=== PATIENT | male | born 1945 | race Caucasian/White ===

== ENCOUNTER 2020-10-28 07:30 | Inpatient (IN) | payer MEDICARE, BC ==
[2020-10-28 14:58] LABS: #Basophils 0.1 10x3/uL (0.0-0.2); #Eosinphils 0.2 10x3/uL (0.0-0.5); #Monocytes 0.7 10x3/uL (0.0-1.1); #Neutrophils 6.6 10x3/uL (1.5-8.4); %Eosinophils 2.4 % (0.0-6.0); %Lymphocytes 12.4 % (18.0-47.0); %Monocytes 8.2 % (0.0-10.0); %Neutrophils 75.3 % (40.0-75.0); Hemoglobin 9.6 g/dL (13.5-17.5); Mean Corpuscular HGB CONC 30.5 g/dL (32.0-36.0); Mean Corpuscular Hemoglobin 30.5 pg (27.0-33.0); Mean Platelet Volume 8.9 fl (7.4-10.4); Platelet Count 786 10x3/uL (150-450); RBC Distribution Width 13.2 % (11.5-14.5); Red Blood Cell (RBC) Count 3.15 10x6/uL (4.32-5.72); White Blood Cell (WBC) Count 8.8 10x3/uL (3.5-10.5)
[2020-10-28 15:08] VITALS: BMI 38.0
[2020-10-28 15:20] LABS: INR-International Normal Ratio 1.1; Prothrombin Time 11.7 sec (9.5-12.1)
[2020-10-28 15:31] LABS: Bilirubin Neg (Negative); Blood, Urine Negative (Negative); Clarity Clear (Clear); Glucose, Urine (Dipstick) Normal (Negative); Ketone, Urine Negative (Negative); Leukocyte Negative (Negative); Nitrite Negative (Negative); Protein, Urine (Dipstick) Negative (Neg-Trace); Specific Gravity, Urine 1.005 (1.002-1.036)
[2020-10-28 15:37] LABS: Anion Gap 16 mmol/L (10-20); BUN (Urea Nitrogen) 16 mg/dL (8.4-25.7); Calc. Creatinine Clearance 0 mL/min (70-130); Carbon Dioxide 27 mmol/L (23-31); Chloride 103 mmol/L (98-107); Glucose 113 mg/dL (83-110); Potassium 4.8 mmol/L (3.5-5.1); Sodium 141 mmol/L (136-145)
[2020-10-28 16:32] LABS: Bacteria/HPF Rare-Few HPF (None Seen); RBC/HPF 0-3 HPF (0-3); Squamous Epithelial 0-3 HPF (0-3); WBC/HPF 0-3 HPF (0-3)
[2020-10-28 17:04] LABS: Giant Platelets SLIGHT; Hypochromia SLIGHT = 6-15 cells (100X) (0-5/hpf); Large Platelets SLIGHT; Platelet Morphology Comment Appears Increased; Stomatocytes SLIGHT = 2-5 cells (100X) (0-1/hpf)
[2020-10-30] MEDS ORDERED: Bupivacaine PF 0.5% 30 ML VIAL ONE (07:11)
[2020-10-30] MEDS ORDERED: Neomycin-Polymyxin 1 ML AMP ONE ×2 (07:11)
[2020-10-30] MEDS ORDERED: Fentanyl 100 MCG/2 ML VIAL ONE ×4 (07:25→11:35)
[2020-10-30] MEDS ORDERED: Phenylephrine 10 MG/ML VIAL ONE (07:26)
[2020-10-30 07:57] LABS: INR-International Normal Ratio 1.1; Prothrombin Time 14.5 sec (12.0-14.7)
[2020-10-30] MEDS ORDERED: Sodium Chloride 0.9% 100 ML ONE (07:57)
[2020-10-30] MEDS ORDERED: Tranexamic Acid 1,000 MG/10 ML VIAL ONE (07:57)
[2020-10-30] MEDS ORDERED: Vancomycin 1.5 GRAM/300 ML BAG ONE (08:02)
[2020-10-30] MEDS ORDERED: Vancomycin HCl 1.5 GM in Sodium Chloride 0.9% 250 ML 300 ML IVPB SCH (09:00)
[2020-10-30] MEDS ORDERED: Tobramycin Sulfate 1.2 GM VIAL ONE (09:09)
[2020-10-30] MEDS ORDERED: Sodium Chloride 0.9% 30 ML ONE ×2 (09:52)
[2020-10-30] MEDS ORDERED: Milk Of Magnesia 30 ML UDCUP PO PRN (11:40)
[2020-10-30] MEDS ORDERED: Bisacodyl 10 MG SUPP PR PRN (11:40)
[2020-10-30] MEDS ORDERED: Cepastat Lozenges 1 LOZ PO PRN (11:40)
[2020-10-30] MEDS ORDERED: Ondansetron PF 4 MG/2 ML Vial IM PRN (11:40)
[2020-10-30] MEDS ORDERED: Acetaminophen 500 MG TAB PO PRN (11:40)
[2020-10-30] MEDS ORDERED: traMADol HCl 50 MG TAB PO PRN (11:40)
[2020-10-30] MEDS ORDERED: Zolpidem Tartrate 5 MG TAB PO PRN (11:40)
[2020-10-30] MEDS ORDERED: Fentanyl 100 MCG/2 ML VIAL SLOW IVP PRN (11:40)
[2020-10-30] MEDS ORDERED: HYDROcodone/Acetaminophen 10/325 mg Tablet PO PRN (11:40)
[2020-10-30] MEDS ORDERED: Fleet Enema 133 ML BOT PR PRN (11:40)
[2020-10-30] MEDS ORDERED: Midazolam HCl 2 mg/2 ml Vial ONE (11:54)
[2020-10-30] MEDS ORDERED: HYDROmorphone 2 MG/ML VIAL ONE (11:54)
[2020-10-30] MEDS ORDERED: Non-Formulary Item 1 EACH (Folic Acid [Folic Acid] 0.8 MG Tablet) PO SCH (12:00)
[2020-10-30] MEDS ORDERED: Folic Acid 1 MG TAB PO SCH (12:15)
--- NOTE | 2020-10-30 13:04 | OP ---
DATE OF PROCEDURE: 10/30/2020 ASSISTANTS: 1. Oscar Stover MD. 2. JUNI Chen. Dr. Stover was present throughout the procedure to include the approach, debridement of the knee, removal of the old total knee replacement and placement of the new total knee replacement. SURGERY PERFORMED: Right total knee revision done for infection. IMPLANTS: Mary Triathlon total knee system. The femur was size 7 cruciate retaining femur, and we used a size 16 all-poly size #6 right tibia. We did not replace an implant for the patella. Blood loss was minimal. We did send intraoperative cultures both in the way of liquid as well as tissue. DISPOSITION: He did go to recovery room in stable condition. INDICATIONS: This 75-year-old male came to the office on Sunday. Knee was aspirated and fluid was felt to be indicative of an infection. The patient had his knee replaced approximately 8 years ago and up until the last couple of weeks had done well without any issues whatsoever, and at this time is presenting to have the knee removed, debrided, and placement of new implants. Also of note, the patient did test COVID positive upon his preop lab work. DESCRIPTION OF PROCEDURE: After all appropriate consent forms were explained and signed by Mr. Machado, he was taken to the operative room and at this time was given general anesthetic. Once the level of anesthesia was appropriate, a tourniquet was placed on his right thigh, and the leg was prepped and draped in standard surgical fashion. The limb was then elevated. It was not exsanguinated, and the tourniquet was taken up to 300 mmHg. Previous incision was used to make an incision into the knee using a 10 blade. Bovie was used to coagulate any brisk venous bleeding. New blade was used to make a medial parapatellar arthrotomy. Once we entered into the joint, a copious amount of cloudy yellow turbid fluid was sucked out of the joint. We did send a culture of this. We then were able to expose the inside of the knee, and at this time we removed the tissue of the suprapatellar pouch and doing a synovectomy as well as cleaning out both the medial and lateral gutters. The tissue from this was sent to the laboratory for culture and sensitivity as well. At this time, we did remove excess scar tissue from posterior to the patellar tendon in order to be able to try to mobilize the patella and the patellar tendon. At this time, we turned our attention to removing the plastic by using a quarter-inch osteotome and popping the plastic out. The metal wire was removed as well. We then flexed our knee up to expose our femur. We then used a combination of osteotomes as well as a saw to get directly underneath the metal to preserve femoral bone. Once this was loose enough, the femur was removed. Any excess cement was also removed at this time. We lost very little femoral bone stock, and again there was not a whole lot of lysis of the bone as this infection was pretty recent. We then turned our attention to the tibia. This was much more difficult to get out, but again we did use a combination of saw and osteotomes to loosen the prosthesis from the underlying tibia and refined, got the metal base plate out preserving as much bone as possible. Again, all excess bone cement was removed at this time. We then cleaned out the notch of any tissue trying to leave some PCL as best we could as well as removing tissue from behind the femoral condyles. At this time, we then thoroughly irrigated with normal saline. We also irrigated with Betadine impregnated saline. Once we had run through 6 L with the pulse lavage, the knee was dried up, and we then mixed 2 batches of cement; we did this first by doing the tibia and secondly by following with the femur. Prior to making the cement, we did take our saw and removed our patella, and we also removed the little plastic plugs from inside of the patella itself. At this time, we were ready for reimplantation. We did trial and we trialed a size 7 cruciate retaining right femur. We trialed a size 6 tibial base plate with a 16 mm poly. This gave us good flexion and stability. We did have some looseness in full extension, and we decided we would build this up a little bit with the cement. We did then prepare our tibia by punching using the riskmethods reamer and then using the all-poly tibial punch to enlarge in our punch thin. Again, we thoroughly irrigated some more with some saline. We then dried the knee and went about mixing our cement. As mentioned previously, we did this in two batches. The tibia was done first. To tobramycin-impregnated cement, we added 3 g of vancomycin powder as well as 2.4 of tobramycin. This was mixed and in its doughy state, we then placed the cement onto the tibia. We then impacted our all-poly tibia into place. We did remove any gross excess cement from around the periphery of the tibia, but we did leave some access just around the prosthesis. We held this in place until the cement had hardened enough that we could go to work on the femur. Again, we mixed another batch of cement in the same fashion, placed it on our femur and impacted our femoral component. The knee was kept in approximately 30 degrees of flexion for remainder of the procedure. Again, we did not go out in full extension to put pressure on the implant. At this time, we thoroughly irrigated and dried some more. We than used #2 Vicryl followed by a #2 Stratafix. We then used 0 Stratafix, and we then used multiple 0 prolene sutures to close the skin. At this time, tourniquet was let down with a total lapse time of just over 2 hours. We then placed a copious bulky sterile dressing on the right leg. The patient was then awakened and was taken to the recovery room in stable condition. All counts were correct at the end of the case, and he did receive some intraoperative IV antibiotics to include Ancef and IV vancomycin. Job ID: [id number]
[2020-10-30] MEDS ORDERED: Labetalol HCl 100 MG/20 ML VIAL ONE ×2 (14:03)
[2020-10-30] MEDS ORDERED: Glycopyrrolate 0.2 MG/ML 5 ML SYRINGE ONE (14:03)
[2020-10-30] MEDS ORDERED: Rocuronium Bromide 10 MG/ML (10ML VIAL) ONE (14:03)
[2020-10-30] MEDS ORDERED: Dexamethasone 20 MG/5 ML VIAL ONE (14:03)
[2020-10-30] MEDS ORDERED: Ondansetron PF 4 MG/2 ML Vial ONE (14:03)
[2020-10-30] MEDS ORDERED: PROPOFOL 200 MG/20 ML VIAL ONE (14:03)
[2020-10-30] MEDS ORDERED: Lidocaine 1% PF 5 ML VIAL ONE (14:03)
--- NOTE | 2020-10-30 14:18 | RAD ---
EXAM: RIGHT KNEE TWO VIEWS: 10/30/20 HISTORY: Status post total knee replacement. FINDINGS/IMPRESSION: Recent total knee arthroplasty changes. No dislocation or periprosthetic fracture. POS: RRE
--- NOTE | 2020-10-30 14:30 | PDOC.CONS ---
- Consultation Encounter Date: 10/30/20 Encounter Time: 14:29 Patient here for I&D and Revision Right Total Knee replacement completed by Dr. Mujica on the morning of 10/30/20. Patient sitting up in bed, alert and oriented, answers questions appropriately. at bedside. Patient has good history recall. Denies pain at time of assessment. I&D and Revision Right Total Knee replacement Atrial Fibrillation - patient is managed by Dr. Grande at [facility]. -Continue Eliquis home med -Continue Metoprolol home med Hypertension -Continue Lisinopril/HCTZ home med every morning -Continue Lisinopril home med every evening Hyperlipidemia -Continue Rosuvastatin home med -Continue Fish Oil home med -Continue Red yeast rice home med Surgical history: -Right TKR 11/2012 -Left TKR 06/2013 -Right foot bunion -Left leg staph infection -Pacemaker placement Social History: Non-smoker Occasional beer drinker No drug use , lives in [place] at home with his . Patient's PCP is Dr. Michael Lagunas Physical Exam - Physical Exam General Appearance: no apparent distress Eyes, Ears, Nose, Throat Exam: PERRL/EOMI, normal ENT inspection, TMs normal Respiratory: lungs clear, normal breath sounds, no respiratory distress Cardiovascular/Chest: normal peripheral pulses, regular rate, rhythm Gastrointestinal/Abdominal: normal bowel sounds, non tender Extremities Exam: other (right knee bandaged s/p surgery) Neurological: alert, normal mood/affect Appearance: appropriate appearance, no memory impairment Behavior/Eye Contact/Speech: cooperative, good eye contact, normal speech Thoughts/Hallucinations: normal thought pattern Skin Exam: normal color, warm/dry Plan Home Medications: Medication Instructions Recorded Confirmed Type Acetaminophen [Acetaminophen Extra 1,500 mg PO BID 06/26/13 10/28/20 History Strength] Lisinopril/Hydrochlorothiazide 1 tab PO QAM 06/26/13 10/28/20 History [Prinizide] Metoprolol Succinate [Toprol XL] 50 mg PO QPM 06/26/13 10/28/20 History Potassium Chloride [Klor-Con 10] 10 meq PO DAILY 06/26/13 10/28/20 History Apixaban [Eliquis] 5 mg PO BID 10/28/20 10/28/20 History Diclofenac Sodium [Diclofenac 2 gm TOP QID PRN 10/28/20 10/28/20 History Sodium 1% Gel] Ergocalciferol (Vitamin D2) 50,000 unit PO Q7DAYS 10/28/20 10/28/20 History [Vitamin D2] Fish Oil/DHA/EPA [Fish Oil 1,200 1 cap PO ASDIR 10/28/20 10/28/20 History mg Fish Oil] Folic Acid 0.8 mg PO ASDIR 10/28/20 10/28/20 History HYDROcodone Bit/APAP 10/325 [Monson 1 tab PO Q6HR PRN 10/28/20 10/28/20 History 10/325] Lisinopril 20 mg PO QPM 10/28/20 10/28/20 History Red Yeast Rice 1,200 mg PO QAM 10/28/20 10/28/20 History Rosuvastatin [Crestor] 5 mg PO QPM 10/28/20 10/28/20 History Allergies: No Known Allergies Allergy (Verified 10/28/20 14:59) Referrals: PROVIDER,NO PCP [Primary Care Provider] - A/P - Problem (1) Status post revision of total replacement of right knee Current Visit: Yes Code(s): Z96.651 - PRESENCE OF RIGHT ARTIFICIAL KNEE JOINT Status: Acute (2) Status post incision and drainage Current Visit: Yes Code(s): Z98.890 - OTHER SPECIFIED POSTPROCEDURAL STATES Status: Acute (3) Atrial fibrillation Current Visit: Yes Code(s): I48.91 - UNSPECIFIED ATRIAL FIBRILLATION Status: Acute (4) Hypertension Current Visit: Yes Code(s): I10 - ESSENTIAL (PRIMARY) HYPERTENSION Status: Acute (5) Hyperlipidemia Current Visit: Yes Code(s): E78.5 - HYPERLIPIDEMIA, UNSPECIFIED Status: Acute - Plan Plan: I&D and Revision Right Total Knee replacement -Dr. Correa Consulted -PT evaluation ordered by Dr. Mujica -Mechanical SCDs ordered by Dr. Mujica Atrial Fibrillation - patient is managed by Dr. Grande at [facility]. -Continue Eliquis home med -Continue Metoprolol home med Hypertension -Continue Lisinopril/HCTZ home med every morning -Continue Lisinopril home med every evening Hyperlipidemia -Continue Rosuvastatin home med -Continue Fish Oil home med -Continue Red yeast rice home med Case discussed with Dr. Millan.
[2020-10-30] MEDS: Sodium Chloride 0.9% 1,000 ML IV SCH (14:54)
[2020-10-30] MEDS: Ketorolac Tromethamine 30 MG/ML VIAL IVP SCH ×2 (14:54→19:06)
[2020-10-30] MEDS ORDERED: Heparin 1,000 UNITS/ML VIAL ONE (16:37)
[2020-10-30] MEDS: CEFAZOLIN 2 GM in Premix Bag 1 BAG IVPB SCH ×2 (17:06→23:48)
--- NOTE | 2020-10-30 20:02 | RAD ---
EXAM: CHEST ONE VIEW: 10/30/20 HISTORY: COVID pneumonia. FINDINGS: Poor inspiration. Minimal cardiomegaly. Left transvenous pacemaker. Minimal patchy increased bronchov ascular markings, nonspecific. No evidence for overt pneumonia. No pleural effusion. IMPRESSION: No evidence for overt pneumonia. Minimal cardiomegaly. Poor inspiration. Consider short term follow-u p. POS: RRE
[2020-10-30] MEDS: Ferrous Gluconate 324 MG TAB PO SCH (20:44)
[2020-10-30] MEDS: Senokot S 8.6-50 MG TAB PO SCH (20:44)
[2020-10-30] MEDS: Rosuvastatin 5 MG TAB PO SCH (20:44)
[2020-10-30] MEDS: Vancomycin 1.5 GRAM/300 ML BAG 1.5 GM in Premix Bag 1 BAG IVPB SCH (20:44)
[2020-10-30] MEDS: Aspirin 81 mg Enteric Coated Tablet PO SCH (20:44)
[2020-10-30] MEDS: Lisinopril 20 MG TAB PO SCH ×2 (20:44)
[2020-10-30 22:07] LABS: SARS-CoV-2 PCR by NAA Not Detected (NotDetected)
[2020-10-31] MEDS: Ketorolac Tromethamine 30 MG/ML VIAL IVP SCH (01:50)
[2020-10-31] MEDS: Sodium Chloride 0.9% 1,000 ML IV SCH ×3 (01:52→18:48)
[2020-10-31 05:16] LABS: Hemoglobin 8.5 g/dL (14.0-18.0); Mean Corpuscular HGB CONC 31.9 g/dL (32.0-36.0); Mean Corpuscular Hemoglobin 30.9 pg (27.0-31.0); Mean Corpuscular Volume 96.9 fL (78.0-98.0); Mean Platelet Volume 6.4 fL (7.4-10.4); Platelet Count 753 thou/uL (130-400); RBC Distribution Width 12.6 % (11.5-14.5); Red Blood Cell (RBC) Count 2.74 mill/uL (4.70-6.10); White Blood Cell (WBC) Count 10.5 thou/uL (4.8-10.8)
[2020-10-31] MEDS: HYDROcodone/Acetaminophen 10/325 mg Tablet PO PRN ×2 (05:36→22:57)
--- NOTE | 2020-10-31 05:52 | CON ---
DATE OF CONSULTATION: 10/30/2020 REASON FOR CONSULTATION: Right TKR infection with revision. HISTORY OF PRESENT ILLNESS: A 75-year-old with history of sick sinus syndrome with pacemaker, hypertension, dyslipidemia, as well as obesity, who had bilateral TKRs in 2012. Those two procedures went well and the patient has not had any issues until now when he developed pain in the right knee and was diagnosed with infection of the right knee. He had the implant removed and the usual articulated spacer was placed with poly tibial implant and a femur component. He is doing well now. No headaches, visual symptoms, sore throat, odynophagia, or dysphagia. No cough or sputum production. No chest pain. No abdominal pain or diarrhea. No genitourinary symptoms. No joint symptoms outside the area of involvement. He did test positive for SARS-CoV-2, but he is asymptomatic at least for the time being. PAST MEDICAL HISTORY: Atrial fibrillation, I think he had an ablation and has a pacemaker in place. Hypertension and hyperlipidemia. PAST SURGICAL HISTORY: Bilateral TKR, had a staph infection left leg in the past, and pacemaker placement. SOCIAL HISTORY: Retired. Lives in [place]. Quit smoking in the 70s. He drinks beer occasionally. . CURRENT MEDICATIONS: Include; 1. Cefazolin. 2. Fentanyl. 3. Folic acid. 4. Hydrocodone. 5. Lisinopril. 6. Magnesium. 7. Metoprolol. 8. Ondansetron. 9. Potassium. 10. Crestor. 11. Vancomycin. 12. Zolpidem. PHYSICAL EXAMINATION: VITAL SIGNS: Temperature is normal. Other vital signs are essentially normal. Saturations are 97% on 2L nasal cannula. SKIN: Right knee with dressing in place. Peripheral IV access. No lymphadenopathy. HEENT: Ocular movements conjugate. Oral cavity normal. LUNGS: Clear to auscultation percussion. HEART: S1 and S2. Regular rate. No S3 or S4. ABDOMEN: Soft, not distended or tender. No ascites. No bladder distention. EXTREMITIES: No joint inflammatory activity outside the area of involvement. Pulses 1+ in dorsalis pedis. Cognitive function appears to be intact. NEURO: Nonfocal. LABORATORY DATA: White cell count 8.8, hemoglobin 9.6, platelets 786, 75% neutrophils. INR 1.1. Sodium 141, creatinine 1.19, glucose 113, and calcium 9.0. Urinalysis normal. SARS-CoV-2 PCR from 2 days ago was detected. He did not have a chest x-ray. ASSESSMENT AND PLAN: Degenerative joint disease, bilateral total knee replacements about seven years ago with now a right total knee replacement infection. The culture thus far has yielded Enterococcus faecalis that is from the knee aspirate from October 26. Susceptibilities are pending, but usually if it is faecalis, it tends to be susceptible to all antimicrobials of interest and he will need arrangement of IV antimicrobial therapy and then transition to oral suppression as usual according to susceptibility results. If SARS-CoV-2 is an additional issue that needs to be further evaluated, we will go ahead and submit the SARS-CoV-2 antibody to have an idea what the stage of the illness he is at. If he does have positive antibodies at a high titer, then we will be dealing with a resolved infection. If he does not have antibodies, then this could still potentially deteriorate in the ensuing days. Will go obtain a chest x-ray as well as part of the workup. Job ID: [id number] [facility]
[2020-10-31] MEDS ORDERED: Ketorolac Tromethamine 30 MG/ML VIAL IVP SCH (08:00)
--- NOTE | 2020-10-31 09:10 | PDOC.HOSPP ---
- Subjective Encounter Date: 10/31/20 Encounter Time: 08:30 Subjective: Patient examined today; denies overnight events; denies new symptoms. Patient and primary nurse today are unsure of COVID status; evidently had one positive test last week but patient was told it was a false positive. Dr. Correa has ordered covid antibodies test to see if this can be determined. - Objective Vital Signs & Weight: Vital Signs (12 hours) Temp Pulse Resp BP Pulse Ox 10/31/20 08:25 98.3 F 80 16 123/77 99 10/31/20 05:00 98.4 F 79 16 121/72 99 10/30/20 23:59 98.5 F 79 16 109/71 98 Weight Weight 113.398 kg I&O: 10/30/20 10/31/20 11/01/20 06:59 06:59 06:59 Intake Total 2250 Output Total 700 Balance 1550 Result Diagrams: 10/31/20 04:20 10/28/20 13:20 Hospitalist ROS - Review of Systems Constitutional: denies: fever, chills, sweats, weakness, malaise, other Eyes: denies: pain, vision change, conjunctivae inflammation, eyelid inflammation, redness, other ENT: denies: ear pain, ear discharge, nose pain, nose discharge, nose congestion, mouth pain, mouth swelling, throat pain, throat swelling, other Respiratory: denies: cough, dry, shortness of breath, hemoptysis, SOB with excertion, pleuritic pain, sputum, wheezing, other Cardiovascular: denies: chest pain, palpitations, orthopnea, paroxysmal noc. dyspnea, edema, light headedness, other Gastrointestinal: denies: nausea, vomiting, abdominal pain, diarrhea, constipation, melena, hematochezia, other Genitourinary: denies: dysuria, frequency, incontinence, hematuria, retention, other Musculoskeletal: reports: leg pain (right knee pain s/p infection) Neurological: denies: weakness, numbness, incoordination, change in speech, confusion, seizures, other - Medication Medications: Active Medications Generic Name Dose Route Start Last Admin Trade Name Freq PRN Reason Stop Dose Admin Hydrocodone Bitart/Acetaminophen 2 tab 10/30/20 11:40 10/31/20 05:36 Hydrocodone/Acetaminophen 10/325 Mg Tablet PO 2 tab Q4H PRN Administration Severe Pain (7-10) Aspirin 81 mg 10/30/20 21:00 10/30/20 20:44 Aspirin 81 Mg Enteric Coated Tablet PO 81 mg BID CLAUDIO Administration Ferrous Gluconate 324 mg 10/30/20 21:00 10/30/20 20:44 Ferrous Gluconate 324 Mg Tab PO 324 mg BID CLAUDIO Administration Sodium Chloride 1,000 mls @ 100 mls/hr 10/30/20 11:45 10/31/20 01:52 Normal Saline 0.9% IV 1,000 mls .Q10H CLAUDIO Administration Cefazolin Sodium/Dextrose 2 gm 50 mls @ 100 mls/hr 10/30/20 16:00 10/30/20 23:48 / Device IVPB 10/31/20 16:29 50 mls [id number] CLAUDIO Administration Vancomycin HCl 1.5 gm/ Device 300 mls @ 200 mls/hr 10/30/20 21:00 10/30/20 20:44 IVPB 11/01/20 10:29 300 mls Q12HR CLAUDIO Administration Lisinopril 20 mg 10/30/20 21:00 10/30/20 20:44 Lisinopril 20 Mg Tab PO Not Given QPM CLAUDIO Metoprolol Succinate 50 mg 10/30/20 21:00 10/30/20 20:44 Metoprolol Succinate Xl 50 Mg Tab PO 50 mg QPM CLAUDIO Administration Rosuvastatin Calcium 5 mg 10/30/20 21:00 10/30/20 20:44 Rosuvastatin 5 Mg Tab PO 5 mg QPM CLAUDIO Administration Senna/Docusate Sodium 2 tab 10/30/20 21:00 10/30/20 20:44 Senokot S 8.6-50 Mg Tab PO 2 tab BID CLAUDIO Administration Hospitalist Exam Vitals: Vital Signs (12 hours) Temp Pulse Resp BP Pulse Ox 10/31/20 08:25 98.3 F 80 16 123/77 99 10/31/20 05:00 98.4 F 79 16 121/72 99 10/30/20 23:59 98.5 F 79 16 109/71 98 Weight Weight 113.398 kg General Appearance: NAD, awake alert Eye: PERRL ENT: normocephalic atraumatic, moist mucosa Neck: supple, no lymphadenopathy Heart: RRR, normal peripheral pulses Respiratory: CTAB, normal chest expansion Gastrointestinal: soft, non-tender Extremities - other findings: right knee with gustabo bandage; no erythema/edema above/below wrap Neurological: cranial nerve grossly intact Musculoskeletal: normal tone Hosp A/P (1) Atrial fibrillation Code(s): I48.91 - UNSPECIFIED ATRIAL FIBRILLATION Status: Chronic (2) Hyperlipidemia Code(s): E78.5 - HYPERLIPIDEMIA, UNSPECIFIED Status: Chronic (3) Hypertension Code(s): I10 - ESSENTIAL (PRIMARY) HYPERTENSION Status: Chronic (4) Status post incision and drainage Code(s): Z98.890 - OTHER SPECIFIED POSTPROCEDURAL STATES Status: Acute (5) Status post revision of total replacement of right knee Code(s): Z96.651 - PRESENCE OF RIGHT ARTIFICIAL KNEE JOINT Status: Chronic - Plan Plan: I&D and Revision Right Total Knee replacement -Dr. Correa Consulted -PT evaluation ordered by Dr. Mujica -Mechanical SCDs ordered by Dr. Mujica -ABX - patient is on Vancomycin and Ancef pending cultures Atrial Fibrillation - patient is managed by Dr. Grande at [facility]. -Continue Eliquis home med -Continue Metoprolol home med Hypertension -Continue Lisinopril/HCTZ home med every morning -Continue Lisinopril home med every evening Hyperlipidemia -Continue Rosuvastatin home med -Continue Fish Oil home med -Continue Red yeast rice home med COVID/Precautions - first rapid test was positive; 2nd was negative -covid antibodies are pending Will Discuss case with Dr. Millan.
[2020-10-31] MEDS ORDERED: CeleCOXIB 100 MG CAP PO SCH (09:30)
[2020-10-31] MEDS: CEFAZOLIN 2 GM in Premix Bag 1 BAG IVPB SCH (09:48)
[2020-10-31] MEDS: Lisinopril/Hydrochlorothiazide 20/25 mg Tablet PO SCH (09:49)
[2020-10-31] MEDS: Multivitamin W/ Minerals 1 TAB PO SCH (09:50)
[2020-10-31] MEDS: Aspirin 81 mg Enteric Coated Tablet PO SCH ×2 (09:50→21:13)
[2020-10-31] MEDS: Potassium Chloride 10 MEQ TAB PO SCH (09:50)
[2020-10-31] MEDS: Senokot S 8.6-50 MG TAB PO SCH ×2 (09:50→21:12)
[2020-10-31] MEDS: Ferrous Gluconate 324 MG TAB PO SCH ×2 (09:50→21:12)
[2020-10-31] MEDS: Vancomycin 1.5 GRAM/300 ML BAG 1.5 GM in Premix Bag 1 BAG IVPB SCH (10:34)
--- NOTE | 2020-10-31 14:57 | PRG ---
DATE OF SERVICE: 10/31/2020 SUBJECTIVE: I spoke with Mr. Machado on the phone today for lengthy period of time. At this juncture, he is doing fine with oral pain medicine and really does not have any specific complaints this morning. OBJECTIVE: VITAL SIGNS: Stable. He is afebrile. His recent hemoglobin was 8.5, hematocrit 26.5, platelet count is slightly decreased to 753,000, and his white count was 10.5. Also of note, the patient had a COVID test done yesterday, which is negative. His previous COVID test from the was positive. COVID antibody test is pending. Also, his micro from the operating room so far is negative. The aspiration that was done on 10/26 has grown out enterococcus faecalis. The patient relates that he is able to move his foot and ankle up and down at this time, which was signified that his block was worn off. Otherwise, his dressing that had placed in the operating room he said it is clean and dry. ASSESSMENT: Right total knee infection, status post revision total knee replacement. PLAN: At this time, we are going to continue to monitor the cultures from the operating room, and hopefully, they also will just grow out enterococcus faecalis and we will then give him appropriate long-term IV antibiotics per Dr. Correa. We will await his COVID antibody test, but at this juncture, we will continue to treat him as if he is just getting over the virus as he had a positive test followed by a negative test. The patient will continue doing limited physical therapy for right now, he is doing touchdown weightbearing. No significant range of motion or other exercises, and I have asked the patient to move his foot and ankle up and down while in bed to help prevent blood clots. The patient is currently on SCDs and will also restart his Eliquis 5 mg p.o. b.i.d., starting with tonight as the first dose. We will continue to monitor his progress. Job ID: [id number] MTDD
--- NOTE | 2020-10-31 15:24 | PRG ---
DATE OF SERVICE: 10/31/2020 SUBJECTIVE: Feeling better. Not much respiratory symptoms, none whatsoever actually. No cough. No dyspnea. Right knee pain is mild. No diarrhea. Voiding without difficulty. He has been afebrile. His sats are 97%. It dipped a little bit at 94% on 2 L nasal cannula. OBJECTIVE: GENERAL: Awake, alert, and oriented. LUNGS: Clear to auscultation and percussion. HEART: S1 and S2. Regular rate. No S3 or S4. ABDOMEN: Soft, not distended. EXTREMITIES: Right knee with dressing and the incision is clean. LABORATORY DATA: White cell count 10.5, hemoglobin 8.5, platelets 753. Creatinine 1.19 two days ago. SARS-CoV-2 antibody is pending. Cultures show an Enterococcus faecalis which will be usual from the sample obtained on October 26. The sample from October 30 and is still no growth. IMAGING STUDIES: Chest x-ray did not show any infiltrates. 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 SARS-CoV-2 antibody is pending to determine the duration of illness to help us predict what the outcome or the timeline is going to be in terms of clinical progression in the ensuing days. Frequently, the patient may initially seem to be okay and they all of a sudden started decompensating when the inflammatory phase of the illness kicks in. We will switch him to ampicillin and discontinue vancomycin and cefazolin. PICC line placement. In the outpatient setting, we will treat him with daptomycin for convenience sake. Again, it is a very important to determine the stage of his COVID-19 infection because sometimes patients appear to be well and now all of a sudden, they will start deteriorating once the inflammatory phase of the SARS-CoV-2 infection kicks in. Job ID: [id number] [facility]
[2020-10-31 17:23] LABS: SARS-CoV-2 IgG Ab Non-Reactive (NonReactive); SARS-CoV-2 IgG Index 0.43 S/CO (< 1.40)
[2020-10-31] MEDS ORDERED: AMPICILLIN SLOW IVP SCH (18:00)
[2020-10-31] MEDS: Rosuvastatin 5 MG TAB PO SCH (21:12)
[2020-10-31] MEDS: CeleCOXIB 100 MG CAP PO SCH (21:12)
[2020-10-31] MEDS: Lisinopril 20 MG TAB PO SCH (21:13)
[2020-10-31] MEDS: Apixaban 5 MG TAB PO SCH (21:13)
[2020-11-01] MEDS ORDERED: Aspirin 81 mg Enteric Coated Tablet ONE (08:49)
[2020-11-01] MEDS ORDERED: Apixaban 5 MG TAB ONE (08:49)
[2020-11-01] MEDS ORDERED: CeleCOXIB 100 MG CAP ONE (08:49)
[2020-11-01] MEDS ORDERED: Ferrous Gluconate 324 MG TAB ONE (08:50)
[2020-11-01] MEDS: Lisinopril/Hydrochlorothiazide 20/25 mg Tablet PO SCH (08:50)
[2020-11-01] MEDS: Apixaban 5 MG TAB PO SCH ×2 (08:50→21:20)
[2020-11-01] MEDS ORDERED: Potassium Chloride 10 MEQ TAB ONE (08:50)
[2020-11-01] MEDS: Aspirin 81 mg Enteric Coated Tablet PO SCH ×2 (08:50→21:21)
[2020-11-01] MEDS: Potassium Chloride 10 MEQ TAB PO SCH (08:50)
[2020-11-01] MEDS: Ferrous Gluconate 324 MG TAB PO SCH ×2 (08:50→21:21)
[2020-11-01] MEDS ORDERED: Lisinopril/Hydrochlorothiazide 20/25 mg Tablet ONE (08:50)
[2020-11-01] MEDS: Senokot S 8.6-50 MG TAB PO SCH ×2 (08:50→21:20)
[2020-11-01] MEDS: Multivitamin W/ Minerals 1 TAB PO SCH (08:50)
[2020-11-01] MEDS: CeleCOXIB 100 MG CAP PO SCH ×2 (08:50→21:20)
[2020-11-01] MEDS ORDERED: Senokot S 8.6-50 MG TAB ONE (08:51)
[2020-11-01] MEDS ORDERED: Multivitamin W/ Minerals 1 TAB ONE (08:51)
--- NOTE | 2020-11-01 13:55 | PDOC.HOSPP ---
- Subjective Encounter Date: 11/01/20 Encounter Time: 13:53 Subjective: Patient admitted by Ortho service for I and D of right knee with prior replacements. On antibiotics.Awaiting all culture data information. - Objective Vital Signs & Weight: Vital Signs (12 hours) BP 11/01/20 09:56 129/74 Weight Weight 250 lb I&O: 10/31/20 11/01/20 11/02/20 06:59 06:59 06:59 Intake Total 2250 2040 Output Total 700 1200 Balance 1550 840 Result Diagrams: 11/01/20 04:59 10/28/20 13:20 Radiology Reviewed by me: Yes EKG Reviewed by me: Yes Hospitalist ROS - Review of Systems Gastrointestinal: reports: nausea Musculoskeletal: reports: leg pain, other Neurological: reports: weakness - Medication Medications: Active Medications Generic Name Dose Route Start Last Admin Trade Name Freq PRN Reason Stop Dose Admin Hydrocodone Bitart/Acetaminophen 2 tab 10/30/20 11:40 10/31/20 22:57 Hydrocodone/Acetaminophen 10/325 Mg Tablet PO 2 tab Q4H PRN Administration Severe Pain (7-10) Apixaban 5 mg 10/31/20 21:00 10/31/20 21:13 Apixaban 5 Mg Tab PO 5 mg BID CLAUDIO Administration Aspirin 81 mg 10/30/20 21:00 10/31/20 21:13 Aspirin 81 Mg Enteric Coated Tablet PO Not Given BID CLAUDIO Celecoxib 200 mg 10/31/20 21:00 10/31/20 21:12 Celecoxib 100 Mg Cap PO 200 mg BID CLAUDIO Administration Ferrous Gluconate 324 mg 10/30/20 21:00 10/31/20 21:12 Ferrous Gluconate 324 Mg Tab PO 324 mg BID CLAUDIO Administration Lisinopril/HCTZ 1 tab 10/31/20 09:00 10/31/20 09:49 Lisinopril/Hydrochlorothiazide 20/25 Mg Tablet PO 1 tab QAM CLAUDIO Administration Sodium Chloride 1,000 mls @ 100 mls/hr 10/30/20 11:45 10/31/20 18:48 Normal Saline 0.9% IV Not Given .Q10H CLAUDIO Ampicillin Sodium 3 gm/ Sodium 100 mls @ 200 mls/hr 10/31/20 16:00 10/31/20 22:08 Chloride IVPB 100 mls 0400,1000,1600,2200 CLAUDIO Administration Iron/Minerals/Multivitamins 1 tab 10/31/20 09:00 10/31/20 09:50 Multivitamin W/ Minerals 1 Tab PO 1 tab DAILY CLAUDIO Administration Lisinopril 20 mg 10/30/20 21:00 10/31/20 21:13 Lisinopril 20 Mg Tab PO Not Given QPM [facility] Metoprolol Succinate 50 mg 10/30/20 21:00 10/31/20 21:13 Metoprolol Succinate Xl 50 Mg Tab PO 50 mg QPM CLAUDIO Administration Potassium Chloride 10 meq 10/31/20 09:00 10/31/20 09:50 Potassium Chloride 10 Meq Tab PO 10 meq DAILY CLAUDIO Administration Rosuvastatin Calcium 5 mg 10/30/20 21:00 10/31/20 21:12 Rosuvastatin 5 Mg Tab PO 5 mg QPM CLAUDIO Administration Senna/Docusate Sodium 2 tab 10/30/20 21:00 10/31/20 21:12 Senokot S 8.6-50 Mg Tab PO 2 tab BID CLAUDIO Administration Hospitalist Exam Vitals: Vital Signs (12 hours) BP 11/01/20 09:56 129/74 Weight Weight 250 lb General Appearance: NAD, awake alert Eye: PERRL, anicteric sclera, scleral icterus ENT: normocephalic atraumatic, no oropharyngeal lesions, moist mucosa Neck: supple, symmetric, no JVD, no thyromegaly, no lymphadenopathy Heart: RRR, no murmur, no gallops, no rubs, normal peripheral pulses Respiratory: CTAB, no wheezes, no rales, no ronchi, normal chest expansion Gastrointestinal: soft, non-tender, non-distended, normal bowel sounds, no palpable masses Neurological: cranial nerve grossly intact, normal sensation to touch Psychiatric: normal affect, normal behavior, A&O x 3 Hosp A/P (1) Status post incision and drainage Code(s): Z98.890 - OTHER SPECIFIED POSTPROCEDURAL STATES Status: Acute (2) Atrial fibrillation Code(s): I48.91 - UNSPECIFIED ATRIAL FIBRILLATION Status: Chronic Qualifiers: Atrial fibrillation type: paroxysmal Qualified Code(s): I48.0 - Paroxysmal atrial fibrillation (3) Hyperlipidemia Code(s): E78.5 - HYPERLIPIDEMIA, UNSPECIFIED Status: Chronic (4) Hypertension Code(s): I10 - ESSENTIAL (PRIMARY) HYPERTENSION Status: Chronic Qualifiers: Hypertension type: essential hypertension Qualified Code(s): I10 - Essential (primary) hypertension (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 S/P I and D. Continue antibiotics for now. 2)DM ii
[2020-11-01] MEDS: Sodium Chloride 0.9% 1,000 ML IV SCH ×2 (14:14→14:18)
[2020-11-01 14:40] LABS: Hemoglobin 8.4 g/dL (14.0-18.0); Mean Corpuscular HGB CONC 30.4 g/dL (32.0-36.0); Mean Corpuscular Hemoglobin 30.7 pg (27.0-31.0); Mean Platelet Volume 6.8 fL (7.4-10.4); Platelet Count 748 thou/uL (130-400); RBC Distribution Width 12.7 % (11.5-14.5); Red Blood Cell (RBC) Count 2.75 mill/uL (4.70-6.10); White Blood Cell (WBC) Count 9.8 thou/uL (4.8-10.8)
[2020-11-01] MEDS: Rosuvastatin 5 MG TAB PO SCH (21:21)
[2020-11-01] MEDS: Lisinopril 20 MG TAB PO SCH (21:21)
[2020-11-02] MEDS: Sodium Chloride 0.9% 1,000 ML IV SCH ×2 (00:12→09:22)
[2020-11-02 07:05] LABS: Hemoglobin 8.8 g/dL (14.0-18.0); Mean Corpuscular HGB CONC 32.6 g/dL (32.0-36.0); Mean Corpuscular Hemoglobin 31.9 pg (27.0-31.0); Mean Corpuscular Volume 97.9 fL (78.0-98.0); Mean Platelet Volume 6.6 fL (7.4-10.4); Platelet Count 803 thou/uL (130-400); RBC Distribution Width 12.7 % (11.5-14.5); Red Blood Cell (RBC) Count 2.75 mill/uL (4.70-6.10); White Blood Cell (WBC) Count 10.2 thou/uL (4.8-10.8)
--- NOTE | 2020-11-02 07:45 | RAD ---
XR Chest 1 View Portable HISTORY: Evaluate for Covid pneumonia. Elevated antibodies. COMPARISON: 10/30/2020 exam. FINDINGS: Heart size is within normal limits. There are atherosclerotic changes of the aorta. A pacem prakash is present. The lungs are clear of infiltrates. IMPRESSION: No infiltrative process.
[2020-11-02] MEDS: Potassium Chloride 10 MEQ TAB PO SCH (08:30)
[2020-11-02] MEDS: CeleCOXIB 100 MG CAP PO SCH ×2 (08:30→20:21)
[2020-11-02] MEDS: Senokot S 8.6-50 MG TAB PO SCH ×2 (08:30→20:21)
[2020-11-02] MEDS: Aspirin 81 mg Enteric Coated Tablet PO SCH ×2 (08:30→20:22)
[2020-11-02] MEDS: Lisinopril/Hydrochlorothiazide 20/25 mg Tablet PO SCH (08:30)
[2020-11-02] MEDS: Multivitamin W/ Minerals 1 TAB PO SCH (08:30)
[2020-11-02] MEDS: Ferrous Gluconate 324 MG TAB PO SCH ×2 (08:31→20:20)
[2020-11-02] MEDS: Apixaban 5 MG TAB PO SCH ×2 (08:31→20:22)
--- NOTE | 2020-11-02 15:00 | PDOC.HOSPP ---
- Subjective Encounter Date: 11/02/20 Encounter Time: 14:57 Subjective: I saw and evaluated this patient at the bedside. He denied any complaint at this time. He is pending PICC line placement. He likely will need long-term antibiotic treatment. I have discussed with case with infectious disease services who make recommendations appropriately. - Objective Vital Signs & Weight: Vital Signs (12 hours) Temp Pulse Resp BP BP Pulse Ox 11/02/20 11:43 97.6 F 87 18 157/82 H 97 11/02/20 08:30 68 162/91 H 94 L 11/02/20 07:34 98.3 F 68 18 162/91 H 94 L 11/02/20 05:20 161/83 H 11/02/20 03:25 97.7 F 77 18 164/97 H 95 Weight Admit Weight 250 lb Weight 250 lb I&O: 11/01/20 11/02/20 11/03/20 06:59 06:59 06:59 Intake Total 2040 1720 Output Total 1200 1400 Balance 840 320 Result Diagrams: 11/04/20 05:26 11/04/20 04:21 Radiology Reviewed by me: Yes EKG Reviewed by me: Yes Hospitalist ROS - Review of Systems Gastrointestinal: reports: nausea Neurological: reports: weakness - Medication Medications: Active Medications Generic Name Dose Route Start Last Admin Trade Name Freq PRN Reason Stop Dose Admin Hydrocodone Bitart/Acetaminophen 2 tab 10/30/20 11:40 10/31/20 22:57 Hydrocodone/Acetaminophen 10/325 Mg Tablet PO 2 tab Q4H PRN Administration Severe Pain (7-10) Apixaban 5 mg 10/31/20 21:00 11/02/20 08:31 Apixaban 5 Mg Tab PO 5 mg BID CLAUDIO Administration Aspirin 81 mg 10/30/20 21:00 11/02/20 08:30 Aspirin 81 Mg Enteric Coated Tablet PO 81 mg BID CLAUDIO Administration Celecoxib 200 mg 10/31/20 21:00 11/02/20 08:30 Celecoxib 100 Mg Cap PO 200 mg BID CLAUDIO Administration Ferrous Gluconate 324 mg 10/30/20 21:00 11/02/20 08:31 Ferrous Gluconate 324 Mg Tab PO 324 mg BID CLAUDIO Administration Lisinopril/HCTZ 1 tab 10/31/20 09:00 11/02/20 08:30 Lisinopril/Hydrochlorothiazide 20/25 Mg Tablet PO 1 tab QAM CLAUDIO Administration Ampicillin Sodium 3 gm/ Sodium 100 mls @ 200 mls/hr 10/31/20 16:00 11/02/20 11:35 Chloride IVPB 100 mls 0400,1000,1600,2200 CLAUDIO Administration Iron/Minerals/Multivitamins 1 tab 10/31/20 09:00 11/02/20 08:30 Multivitamin W/ Minerals 1 Tab PO 1 tab DAILY CLAUDIO Administration Lisinopril 20 mg 10/30/20 21:00 11/01/20 21:21 Lisinopril 20 Mg Tab PO 20 mg QPM CLAUDIO Administration Metoprolol Succinate 50 mg 10/30/20 21:00 11/01/20 21:21 Metoprolol Succinate Xl 50 Mg Tab PO 50 mg QPM CLAUDIO Administration Potassium Chloride 10 meq 10/31/20 09:00 11/02/20 08:30 Potassium Chloride 10 Meq Tab PO 10 meq DAILY CLAUDIO Administration Rosuvastatin Calcium 5 mg 10/30/20 21:00 11/01/20 21:21 Rosuvastatin 5 Mg Tab PO 5 mg QPM CLAUDIO Administration Senna/Docusate Sodium 2 tab 10/30/20 21:00 11/02/20 08:30 Senokot S 8.6-50 Mg Tab PO 2 tab BID CLAUDIO Administration Hospitalist Exam Vitals: Vital Signs (12 hours) Temp Pulse Resp BP BP Pulse Ox 11/02/20 11:43 97.6 F 87 18 157/82 H 97 11/02/20 08:30 68 162/91 H 94 L 11/02/20 07:34 98.3 F 68 18 162/91 H 94 L 11/02/20 05:20 161/83 H 11/02/20 03:25 97.7 F 77 18 164/97 H 95 Weight Admit Weight 250 lb Weight 250 lb General Appearance: NAD ENT: normocephalic atraumatic, no oropharyngeal lesions Neck: supple, symmetric, no JVD Heart: RRR, no murmur, no gallops Respiratory: CTAB, no wheezes, no rales Gastrointestinal: soft, non-tender Neurological: cranial nerve grossly intact Psychiatric: normal affect, normal behavior, A&O x 3 Hosp A/P (1) Status post incision and drainage Code(s): Z98.890 - OTHER SPECIFIED POSTPROCEDURAL STATES Status: Acute (2) Atrial fibrillation Code(s): I48.91 - UNSPECIFIED ATRIAL FIBRILLATION Status: Chronic Qualifiers: Atrial fibrillation type: paroxysmal Qualified Code(s): I48.0 - Paroxysmal atrial fibrillation (3) Hyperlipidemia Code(s): E78.5 - HYPERLIPIDEMIA, UNSPECIFIED Status: Chronic (4) Hypertension Code(s): I10 - ESSENTIAL (PRIMARY) HYPERTENSION Status: Chronic Qualifiers: Hypertension type: essential hypertension Qualified Code(s): I10 - Essential (primary) hypertension (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 S/P I and D. Wound cultures growing Enterococcus species. Continue antibiotics for now. 2)DM. 3. Morbid obesity. #4. Hypertension.
--- NOTE | 2020-11-02 15:51 | PRG ---
DATE OF SERVICE: 11/02/2020 SUBJECTIVE: Feeling well. No cough. No dyspnea. No chest pain. No abdominal pain. Knee is doing well. He is voiding without any problems. OBJECTIVE: VITAL SIGNS: Normal except for mild elevation of systolic blood pressure, O2 saturations are anywhere from 94% to 97% on room air. GENERAL: Awake, alert, oriented. LUNGS: Clear. HEART: S1 and S2, regular rate. ABDOMEN: Soft. Not distended. EXTREMITIES: The knee is dressed. No drains. LABORATORY DATA: White cell count 10.2, hemoglobin 8.8, platelets 803. Creatinine 1.19. 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 The patient to be discharged on IV ampicillin 3 g IV q.6. It looks like he is going to rehab first. He did have a positive SARS-CoV-2 antibody test, which was done elsewhere, which was positive, but anyway he is asymptomatic, now I am going to get another sample to see if we can take him off isolation. The end date of therapy has been placed in the orders for Case Management and it is December 11 with weekly labs. After that, he will be on oral amoxicillin t.i.d. for 4 months and then b.i.d. indefinitely. Job ID: [id number]
[2020-11-02 18:07] LABS: SARS-CoV-2 PCR NAA for Saliva Not Detected (NotDetected)
[2020-11-02] MEDS: Lisinopril 20 MG TAB PO SCH (20:20)
[2020-11-02] MEDS: Rosuvastatin 5 MG TAB PO SCH (20:21)
--- NOTE | 2020-11-03 09:56 | SPC ---
Ultrasound-guidedrightupper extremity PICC placement: 11/03/2020 HISTORY: In need of intravenous access FINDINGS: Informed consent obtained prior to the procedure. Right antecubital fossa prepped and draped in normal sterile fashion. Skin overlying theright basilicvein anesthetized with 1% buffered lidocaine. With direct sonographic guidance, vascular access is obtained via the right basilicvein but secondary to spasm, the right basilic vein could not be utilized. Thus, skin overlying the right brachial vein was anesthetized wit h 1% buffered lidocaine and with direct sonographic guidance, vascular access is obtained via the right brachial vein. Then, an 0.018in wire was advanced to the cavoatrial junction. Intravascular michelle gth is calculated at 45 cm and of the PICC is cut accordingly. Needle is removed and replaced with a peel-away sheath. The PICC was advanced over the wire. Wire and peel-away sheath were removed. The tip of the catheter overlies the cavoatrial junction. The port flushes well and the catheter is ready for use. Exposure data: 2.0 minutes of fluoroscopic time 05186 mGy per centimeter squared IMPRESSION: Successful ultrasound guided placement of a rightupper extremity PICC.
[2020-11-03] MEDS: Aspirin 81 mg Enteric Coated Tablet PO SCH ×2 (10:54→21:07)
[2020-11-03] MEDS: Lisinopril/Hydrochlorothiazide 20/25 mg Tablet PO SCH (10:55)
[2020-11-03] MEDS: Senokot S 8.6-50 MG TAB PO SCH ×2 (10:55→21:06)
[2020-11-03] MEDS: CeleCOXIB 100 MG CAP PO SCH ×2 (10:55→21:07)
[2020-11-03] MEDS: Apixaban 5 MG TAB PO SCH ×2 (10:55→21:07)
[2020-11-03] MEDS: Potassium Chloride 10 MEQ TAB PO SCH (10:56)
[2020-11-03] MEDS: Multivitamin W/ Minerals 1 TAB PO SCH (10:56)
[2020-11-03] MEDS: Ferrous Gluconate 324 MG TAB PO SCH ×2 (10:56→21:07)
--- NOTE | 2020-11-03 17:02 | PDOC.HOSPP ---
- Subjective Encounter Date: 11/03/20 Encounter Time: 17:00 Subjective: Patient is tolerating his antibiotics well. A PICC line was just placed in anticipation of long-term antibiotic treatment. This will be arranged through the case management. We will continue current management plan. - Objective Vital Signs & Weight: Vital Signs (12 hours) Temp Pulse Resp BP Pulse Ox 11/03/20 16:35 98.6 F 66 14 129/73 93 L 11/03/20 11:50 98.4 F 64 12 133/75 95 11/03/20 08:26 98.5 F 62 16 162/83 H 95 Weight Admit Weight 250 lb Weight 250 lb I&O: 11/02/20 11/03/20 11/04/20 06:59 06:59 06:59 Intake Total 1720 1200 420 Output Total 1400 500 Balance 320 700 420 Result Diagrams: 11/02/20 04:23 10/28/20 13:20 Radiology Reviewed by me: Yes EKG Reviewed by me: Yes Hospitalist ROS - Review of Systems Neurological: reports: weakness - Medication Medications: Active Medications Generic Name Dose Route Start Last Admin Trade Name Freq PRN Reason Stop Dose Admin Hydrocodone Bitart/Acetaminophen 2 tab 10/30/20 11:40 10/31/20 22:57 Hydrocodone/Acetaminophen 10/325 Mg Tablet PO 2 tab Q4H PRN Administration Severe Pain (7-10) Apixaban 5 mg 10/31/20 21:00 11/03/20 10:55 Apixaban 5 Mg Tab PO 5 mg BID CLAUDIO Administration Aspirin 81 mg 10/30/20 21:00 11/03/20 10:54 Aspirin 81 Mg Enteric Coated Tablet PO 81 mg BID CLAUDIO Administration Celecoxib 200 mg 10/31/20 21:00 11/03/20 10:55 Celecoxib 100 Mg Cap PO 200 mg BID CLAUDIO Administration Ferrous Gluconate 324 mg 10/30/20 21:00 11/03/20 10:56 Ferrous Gluconate 324 Mg Tab PO 324 mg BID CLAUDIO Administration Lisinopril/HCTZ 1 tab 10/31/20 09:00 11/03/20 10:55 Lisinopril/Hydrochlorothiazide 20/25 Mg Tablet PO 1 tab QAM CLAUDIO Administration Ampicillin Sodium 3 gm/ Sodium 100 mls @ 200 mls/hr 10/31/20 16:00 11/03/20 11:13 Chloride IVPB 100 mls 0400,1000,1600,2200 CLAUDIO Administration Iron/Minerals/Multivitamins 1 tab 10/31/20 09:00 11/03/20 10:56 Multivitamin W/ Minerals 1 Tab PO 1 tab DAILY CLAUDIO Administration Lisinopril 20 mg 10/30/20 21:00 11/02/20 20:20 Lisinopril 20 Mg Tab PO 20 mg QPM CLAUDIO Administration Metoprolol Succinate 50 mg 10/30/20 21:00 11/02/20 20:21 Metoprolol Succinate Xl 50 Mg Tab PO 50 mg QPM CLAUDIO Administration Potassium Chloride 10 meq 10/31/20 09:00 11/03/20 10:56 Potassium Chloride 10 Meq Tab PO 10 meq DAILY CLAUDIO Administration Rosuvastatin Calcium 5 mg 10/30/20 21:00 11/02/20 20:21 Rosuvastatin 5 Mg Tab PO 5 mg QPM CLAUDIO Administration Senna/Docusate Sodium 2 tab 10/30/20 21:00 11/03/20 10:55 Senokot S 8.6-50 Mg Tab PO 2 tab BID CLAUDIO Administration Hospitalist Exam Vitals: Vital Signs (12 hours) Temp Pulse Resp BP Pulse Ox 11/03/20 16:35 98.6 F 66 14 129/73 93 L 11/03/20 11:50 98.4 F 64 12 133/75 95 11/03/20 08:26 98.5 F 62 16 162/83 H 95 Weight Admit Weight 250 lb Weight 250 lb General Appearance: NAD, awake alert Eye: PERRL, anicteric sclera ENT: normocephalic atraumatic, no oropharyngeal lesions Neck: supple, symmetric, no JVD Heart: RRR, no murmur, no gallops Respiratory: CTAB, no wheezes Gastrointestinal: soft, non-tender, non-distended, normal bowel sounds Neurological: cranial nerve grossly intact, normal sensation to touch Psychiatric: normal affect, normal behavior Hosp A/P (1) Status post incision and drainage Code(s): Z98.890 - OTHER SPECIFIED POSTPROCEDURAL STATES Status: Acute (2) Atrial fibrillation Code(s): I48.91 - UNSPECIFIED ATRIAL FIBRILLATION Status: Chronic Qualifiers: Atrial fibrillation type: paroxysmal Qualified Code(s): I48.0 - Paroxysmal atrial fibrillation (3) Hyperlipidemia Code(s): E78.5 - HYPERLIPIDEMIA, UNSPECIFIED Status: Chronic (4) Hypertension Code(s): I10 - ESSENTIAL (PRIMARY) HYPERTENSION Status: Chronic Qualifiers: Hypertension type: essential hypertension Qualified Code(s): I10 - Essential (primary) hypertension (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 Encourage him to ambulate more. - Plan PT/OT, incentive spirometry 1)Infected right knee. S/P I and D. Operative cultures growing Enterococcus species. Continue antibiotics for now. We appreciate ID ongoing evaluation and recommendations. 2)DM II Continue regular insulin sliding scale coverage.
--- NOTE | 2020-11-03 17:36 | PRG ---
DATE OF SERVICE: 11/03/2020 SUBJECTIVE: Ziyad is a 75-year-old male, postop day #4 from a right knee irrigation and debridement for periprosthetic septic arthritis. His cultures come back positive for enterococcus. OBJECTIVE: VITAL SIGNS: Temperature 98.6, pulse 66, respiratory rate 14, O2 saturation is 93% on room air, and blood pressure is 129/73. GENERAL: He is alert, appropriate, responsive with examiner. EXTREMITIES: Incisions clean. No strike through. No erythema. Neurovascularly intact in the right lower extremity. LABORATORY DATA: Hemoglobin and hematocrit yesterday were 8.8 and 27 reaching ulices on Sunday. White blood cell count is 10.2. His specimen grew out enterococcus. IMPRESSION: Enterococcus periprosthetic septic arthritis, right knee. PLAN: 1. IV antibiotics per Dr. Correa. 2. PICC line has been placed. 3. I do not think he is fully independent at home as the conditions are such that the patient cannot safely navigate into his own home with the present weather conditions. We will continue to observe tonight and consider discharge either tomorrow or the following day. Job ID: [id number]
[2020-11-03 19:45] LABS: SARS-CoV-2 IgG Ab Non-Reactive (NonReactive); SARS-CoV-2 IgG Index 0.37 S/CO (< 1.40)
[2020-11-03] MEDS: Rosuvastatin 5 MG TAB PO SCH (21:07)
[2020-11-03] MEDS: Lisinopril 20 MG TAB PO SCH (21:08)
[2020-11-04 04:55] LABS: Anion Gap 10 mmol/L (10-20); BUN (Urea Nitrogen) 13 mg/dL (8.4-25.7); Calc. Creatinine Clearance 110 mL/min (70-130); Calcium 8.4 mg/dL (7.8-10.44); Carbon Dioxide 31 mmol/L (23-31); Chloride 104 mmol/L (98-107); Glucose 92 mg/dL (83-110); Potassium 3.7 mmol/L (3.5-5.1); Sodium 141 mmol/L (136-145)
[2020-11-04 05:46] LABS: #Basophils 0.1 thou/uL (0.0-0.2); #Eosinphils 0.8 thou/uL (0.0-0.7); #Lymphocytes 2.5 thou/uL (1.20-3.40); #Monocytes 0.9 thou/uL (0.11-0.59); #Neutrophils 5.3 thou/uL (1.40-6.50); %Basophils 0.7 % (0.0-1.0); %Eosinophils 8.8 % (0.0-10.0); %Lymphocytes 25.4 % (21.0-51.0); %Monocytes 9.8 % (0.0-10.0); %Neutrophils 55.4 % (42.0-75.0); Hemoglobin 8.6 g/dL (14.0-18.0); Mean Corpuscular HGB CONC 31.8 g/dL (32.0-36.0); Mean Corpuscular Hemoglobin 30.3 pg (27.0-31.0); Mean Corpuscular Volume 95.4 fL (78.0-98.0); Mean Platelet Volume 6.2 fL (7.4-10.4); Platelet Count 854 thou/uL (130-400); RBC Distribution Width 13.1 % (11.5-14.5); Red Blood Cell (RBC) Count 2.84 mill/uL (4.70-6.10); White Blood Cell (WBC) Count 9.6 thou/uL (4.8-10.8)
[2020-11-04] MEDS: Senokot S 8.6-50 MG TAB PO SCH ×2 (09:41→20:45)
[2020-11-04] MEDS: Lisinopril/Hydrochlorothiazide 20/25 mg Tablet PO SCH (09:41)
[2020-11-04] MEDS: Potassium Chloride 10 MEQ TAB PO SCH (09:42)
[2020-11-04] MEDS: Multivitamin W/ Minerals 1 TAB PO SCH (09:42)
[2020-11-04] MEDS: Aspirin 81 mg Enteric Coated Tablet PO SCH ×2 (09:42→20:44)
[2020-11-04] MEDS: Ferrous Gluconate 324 MG TAB PO SCH ×2 (09:42→20:44)
[2020-11-04] MEDS: CeleCOXIB 100 MG CAP PO SCH ×2 (09:42→20:44)
[2020-11-04] MEDS: Apixaban 5 MG TAB PO SCH ×2 (09:42→20:45)
--- NOTE | 2020-11-04 15:57 | PDOC.HOSPP ---
- Subjective Encounter Date: 11/04/20 Encounter Time: 15:56 Subjective: This patient was seen and evaluated today. He has no complaints. He is tolerating his antibiotics well. Plan is for him to return home hopefully in the next day or 2. He will likely do antibiotic treatment at home. This will be arranged with home health and case management is working on it. - Objective Vital Signs & Weight: Vital Signs (12 hours) Temp Pulse Resp BP Pulse Ox 11/04/20 15:31 98.6 F 63 16 132/70 93 L 11/04/20 11:55 98.7 F 71 16 111/69 92 L 11/04/20 08:01 98.0 F 60 18 133/78 94 L Weight Admit Weight 250 lb Weight 250 lb I&O: 11/03/20 11/04/20 11/05/20 06:59 06:59 06:59 Intake Total 1200 1070 Output Total 500 960 Balance 700 110 Result Diagrams: 11/04/20 05:26 11/04/20 04:21 Radiology Reviewed by me: Yes EKG Reviewed by me: Yes Hospitalist ROS - Review of Systems Gastrointestinal: reports: nausea Neurological: reports: numbness - Medication Medications: Active Medications Generic Name Dose Route Start Last Admin Trade Name Freq PRN Reason Stop Dose Admin Hydrocodone Bitart/Acetaminophen 1 tab 10/30/20 11:40 11/03/20 21:08 Hydrocodone/Acetaminophen 10/325 Mg Tablet PO 1 tab Q4H PRN Administration Moderate Pain (4-6) Hydrocodone Bitart/Acetaminophen 2 tab 10/30/20 11:40 10/31/20 22:57 Hydrocodone/Acetaminophen 10/325 Mg Tablet PO 2 tab Q4H PRN Administration Severe Pain (7-10) Apixaban 5 mg 10/31/20 21:00 11/04/20 09:42 Apixaban 5 Mg Tab PO 5 mg BID CLAUDIO Administration Aspirin 81 mg 10/30/20 21:00 11/04/20 09:42 Aspirin 81 Mg Enteric Coated Tablet PO 81 mg BID CLAUDIO Administration Celecoxib 200 mg 10/31/20 21:00 11/04/20 09:42 Celecoxib 100 Mg Cap PO 200 mg BID CLAUDIO Administration Ferrous Gluconate 324 mg 10/30/20 21:00 11/04/20 09:42 Ferrous Gluconate 324 Mg Tab PO 324 mg BID CLAUDIO Administration Lisinopril/HCTZ 1 tab 10/31/20 09:00 11/04/20 09:41 Lisinopril/Hydrochlorothiazide 20/25 Mg Tablet PO 1 tab QAM CLAUDIO Administration Ampicillin Sodium 3 gm/ Sodium 100 mls @ 200 mls/hr 10/31/20 16:00 11/04/20 10:40 Chloride IVPB 100 mls 0400,1000,1600,2200 CLAUDIO Administration Iron/Minerals/Multivitamins 1 tab 10/31/20 09:00 11/04/20 09:42 Multivitamin W/ Minerals 1 Tab PO 1 tab DAILY CLAUDIO Administration Lisinopril 20 mg 10/30/20 21:00 11/03/20 21:08 Lisinopril 20 Mg Tab PO 20 mg QPM CLAUDIO Administration Metoprolol Succinate 50 mg 10/30/20 21:00 11/03/20 21:07 Metoprolol Succinate Xl 50 Mg Tab PO 50 mg QPM CLAUDIO Administration Potassium Chloride 10 meq 10/31/20 09:00 11/04/20 09:42 Potassium Chloride 10 Meq Tab PO 10 meq DAILY CLAUDIO Administration Rosuvastatin Calcium 5 mg 10/30/20 21:00 11/03/20 21:07 Rosuvastatin 5 Mg Tab PO 5 mg QPM CLAUDIO Administration Senna/Docusate Sodium 2 tab 10/30/20 21:00 11/04/20 09:41 Senokot S 8.6-50 Mg Tab PO 2 tab BID CLAUDIO Administration Hospitalist Exam Vitals: Vital Signs (12 hours) Temp Pulse Resp BP Pulse Ox 11/04/20 15:31 98.6 F 63 16 132/70 93 L 11/04/20 11:55 98.7 F 71 16 111/69 92 L 11/04/20 08:01 98.0 F 60 18 133/78 94 L Weight Admit Weight 250 lb Weight 250 lb General Appearance: NAD, awake alert Eye: PERRL, anicteric sclera ENT: normocephalic atraumatic, no oropharyngeal lesions Neck: supple, symmetric, no JVD Heart: RRR, no murmur, no gallops Respiratory: CTAB, no wheezes, no rales Gastrointestinal: soft, non-tender, non-distended, normal bowel sounds Neurological: cranial nerve grossly intact, normal sensation to touch Psychiatric: normal affect, normal behavior, A&O x 3 Hosp A/P (1) Status post incision and drainage Code(s): Z98.890 - OTHER SPECIFIED POSTPROCEDURAL STATES Status: Acute (2) Atrial fibrillation Code(s): I48.91 - UNSPECIFIED ATRIAL FIBRILLATION Status: Chronic Qualifiers: Atrial fibrillation type: paroxysmal Qualified Code(s): I48.0 - Paroxysmal atrial fibrillation (3) Hyperlipidemia Code(s): E78.5 - HYPERLIPIDEMIA, UNSPECIFIED Status: Chronic (4) Hypertension Code(s): I10 - ESSENTIAL (PRIMARY) HYPERTENSION Status: Chronic Qualifiers: Hypertension type: essential hypertension Qualified Code(s): I10 - Essential (primary) hypertension (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 S/P I and D. Wound cultures growing Enterococcus species. Continue antibiotics for now. 2)DM. 3.Morbid obesity. #4 Hypertension.
[2020-11-04] MEDS: Rosuvastatin 5 MG TAB PO SCH (20:44)
[2020-11-04] MEDS: Lisinopril 20 MG TAB PO SCH (20:45)
[2020-11-05] MEDS: Ferrous Gluconate 324 MG TAB PO SCH ×2 (09:22→20:04)
[2020-11-05] MEDS: CeleCOXIB 100 MG CAP PO SCH ×2 (09:22→20:04)
[2020-11-05] MEDS: Multivitamin W/ Minerals 1 TAB PO SCH (09:22)
[2020-11-05] MEDS: Aspirin 81 mg Enteric Coated Tablet PO SCH ×2 (09:22→20:03)
[2020-11-05] MEDS: Lisinopril/Hydrochlorothiazide 20/25 mg Tablet PO SCH (09:22)
[2020-11-05] MEDS: Potassium Chloride 10 MEQ TAB PO SCH (09:22)
[2020-11-05] MEDS: Apixaban 5 MG TAB PO SCH ×2 (09:23→20:04)
[2020-11-05] MEDS: Senokot S 8.6-50 MG TAB PO SCH ×2 (09:26→20:05)
--- NOTE | 2020-11-05 16:25 | PDOC.HOSPP ---
- Subjective Encounter Date: 11/05/20 Encounter Time: 16:23 Subjective: 75-year-old patient seen and examined today. He was admitted by orthopedic services for suspected infected right knee. He is on IV antibiotic and ID services are monitoring this. The patient will likely need long-term antibiotic per my conversation with Dr. Correa. This is being arranged by case management. He will likely discharge home once this is all arranged. The patient is getting around with physical therapy. - Objective Vital Signs & Weight: Vital Signs (12 hours) Temp Pulse Resp BP Pulse Ox 11/05/20 15:06 98.5 F 72 18 126/67 95 11/05/20 11:37 97.9 F 67 18 134/63 95 11/05/20 07:10 97.9 F 67 18 151/75 H 96 Weight Admit Weight 250 lb Weight 250 lb I&O: 11/04/20 11/05/20 11/06/20 06:59 06:59 06:59 Intake Total 1070 2400 Output Total 960 1250 Balance 110 1150 Result Diagrams: 11/04/20 05:26 11/04/20 04:21 Radiology Reviewed by me: Yes EKG Reviewed by me: Yes Hospitalist ROS - Medication Medications: Active Medications Generic Name Dose Route Start Last Admin Trade Name Freq PRN Reason Stop Dose Admin Hydrocodone Bitart/Acetaminophen 1 tab 10/30/20 11:40 11/03/20 21:08 Hydrocodone/Acetaminophen 10/325 Mg Tablet PO 1 tab Q4H PRN Administration Moderate Pain (4-6) Hydrocodone Bitart/Acetaminophen 2 tab 10/30/20 11:40 10/31/20 22:57 Hydrocodone/Acetaminophen 10/325 Mg Tablet PO 2 tab Q4H PRN Administration Severe Pain (7-10) Apixaban 5 mg 10/31/20 21:00 11/05/20 09:23 Apixaban 5 Mg Tab PO 5 mg BID [facility] Administration Aspirin 81 mg 10/30/20 21:00 11/05/20 09:22 Aspirin 81 Mg Enteric Coated Tablet PO 81 mg BID [facility] Administration Celecoxib 200 mg 10/31/20 21:00 11/05/20 09:22 Celecoxib 100 Mg Cap PO 200 mg BID [facility] Administration Ferrous Gluconate 324 mg 10/30/20 21:00 11/05/20 09:22 Ferrous Gluconate 324 Mg Tab PO 324 mg BID [facility] Administration Lisinopril/HCTZ 1 tab 10/31/20 09:00 11/05/20 09:22 Lisinopril/Hydrochlorothiazide 20/25 Mg Tablet PO 1 tab QAM [facility] Administration Ampicillin Sodium 3 gm/ Sodium 100 mls @ 200 mls/hr 10/31/20 16:00 11/05/20 09:22 Chloride IVPB 100 mls 0400,1000,1600,2200 [facility] Administration Iron/Minerals/Multivitamins 1 tab 10/31/20 09:00 11/05/20 09:22 Multivitamin W/ Minerals 1 Tab PO 1 tab DAILY [facility] Administration Lisinopril 20 mg 10/30/20 21:00 11/04/20 20:45 Lisinopril 20 Mg Tab PO 20 mg QPM [facility] Administration Metoprolol Succinate 50 mg 10/30/20 21:00 11/04/20 20:45 Metoprolol Succinate Xl 50 Mg Tab PO 50 mg QPM [facility] Administration Potassium Chloride 10 meq 10/31/20 09:00 11/05/20 09:22 Potassium Chloride 10 Meq Tab PO 10 meq DAILY [facility] Administration Rosuvastatin Calcium 5 mg 10/30/20 21:00 11/04/20 20:44 Rosuvastatin 5 Mg Tab PO 5 mg QPM [facility] Administration Senna/Docusate Sodium 2 tab 10/30/20 21:00 11/05/20 09:26 Senokot S 8.6-50 Mg Tab PO Not Given BID [facility] Hospitalist Exam Vitals: Vital Signs (12 hours) Temp Pulse Resp BP Pulse Ox 11/05/20 15:06 98.5 F 72 18 126/67 95 11/05/20 11:37 97.9 F 67 18 134/63 95 11/05/20 07:10 97.9 F 67 18 151/75 H 96 Weight Admit Weight 250 lb Weight 250 lb General Appearance: NAD, awake alert Eye: PERRL, anicteric sclera ENT: normocephalic atraumatic, no oropharyngeal lesions Neck: supple, symmetric Heart: RRR, no murmur, no gallops Respiratory: CTAB, no wheezes Neurological: cranial nerve grossly intact Psychiatric: normal affect Hosp A/P (1) Status post incision and drainage Code(s): Z98.890 - OTHER SPECIFIED POSTPROCEDURAL STATES Status: Acute (2) Atrial fibrillation Code(s): I48.91 - UNSPECIFIED ATRIAL FIBRILLATION Status: Chronic Qualifiers: Atrial fibrillation type: paroxysmal Qualified Code(s): I48.0 - Paroxysmal atrial fibrillation (3) Hyperlipidemia Code(s): E78.5 - HYPERLIPIDEMIA, UNSPECIFIED Status: Chronic (4) Hypertension Code(s): I10 - ESSENTIAL (PRIMARY) HYPERTENSION Status: Chronic Qualifiers: Hypertension type: essential hypertension Qualified Code(s): I10 - Es sential (primary) hypertension (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 S/P I and D. Wound cultures growing Enterococcus species. Continue antibiotics for now. 11/05/2020. The patient is going to need long-term antibiotic therapy. This will be arranged through the ID services. 2)DM. 3.Morbid obesity. #4 Hypertension.
[2020-11-05] MEDS: Rosuvastatin 5 MG TAB PO SCH (20:04)
[2020-11-05] MEDS: Lisinopril 20 MG TAB PO SCH (20:04)
--- NOTE | 2020-11-06 03:35 | PRG ---
DATE OF SERVICE: 11/05/2020 SUBJECTIVE: Feeling better. Had a little pain in the right knee, still not able to bear weight. No respiratory symptoms anymore. No abdominal pain. Voiding without difficulty. Had a bowel movement, which was normal. OBJECTIVE: VITAL SIGNS: Essentially normal, O2 saturations are 95% on room air. LUNGS: Clear. HEART: S1 and S2. Regular rate. ABDOMEN: Soft. EXTREMITIES: Right knee with a dressing. LABORATORY STUDIES: Creatinine 0.96. WBC 9.6, hemoglobin 8.6, platelets 854, platelets keep increasing for some reason. Knee swab with presumptive Enterococcus. We have 2 samples by a few days with the same organism. The patient is currently on ampicillin. 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 The patient will go home on ampicillin 3 g q.6 and at the end of the treatment in November switch to amoxicillin 500 three times daily for 4 months and then b.i.d. indefinitely. Discussed potential adverse reactions from the treatment including PICC line complications such as thrombosis and antibiotic complications including hypersensitivity reactions, bone marrow toxicity and diarrhea. Job ID: [id number] MTDD
[2020-11-06 04:01] LABS: #Basophils 0.1 thou/uL (0.0-0.2); #Eosinphils 0.6 thou/uL (0.0-0.7); #Lymphocytes 2.3 thou/uL (1.20-3.40); #Monocytes 0.9 thou/uL (0.11-0.59); %Basophils 0.9 % (0.0-1.0); %Eosinophils 6.5 % (0.0-10.0); %Lymphocytes 22.8 % (21.0-51.0); %Monocytes 9.5 % (0.0-10.0); %Neutrophils 60.3 % (42.0-75.0); Hemoglobin 9.3 g/dL (14.0-18.0); Mean Corpuscular HGB CONC 32.2 g/dL (32.0-36.0); Mean Corpuscular Hemoglobin 30.8 pg (27.0-31.0); Mean Corpuscular Volume 95.6 fL (78.0-98.0); Mean Platelet Volume 6.3 fL (7.4-10.4); Platelet Count 823 thou/uL (130-400); RBC Distribution Width 13.1 % (11.5-14.5); Red Blood Cell (RBC) Count 3.02 mill/uL (4.70-6.10); White Blood Cell (WBC) Count 9.9 thou/uL (4.8-10.8)
[2020-11-06 04:19] LABS: Anion Gap 14 mmol/L (10-20); BUN (Urea Nitrogen) 14 mg/dL (8.4-25.7); Calc. Creatinine Clearance 93 mL/min (70-130); Calcium 8.7 mg/dL (7.8-10.44); Carbon Dioxide 27 mmol/L (23-31); Chloride 103 mmol/L (98-107); Glucose 100 mg/dL (83-110); Potassium 3.9 mmol/L (3.5-5.1); Sodium 140 mmol/L (136-145)
[2020-11-06] MEDS: Aspirin 81 mg Enteric Coated Tablet PO SCH ×2 (10:46→20:33)
[2020-11-06] MEDS: Ferrous Gluconate 324 MG TAB PO SCH ×2 (10:46→20:32)
[2020-11-06] MEDS: Apixaban 5 MG TAB PO SCH ×2 (10:46→20:33)
[2020-11-06] MEDS: Lisinopril/Hydrochlorothiazide 20/25 mg Tablet PO SCH (10:47)
[2020-11-06] MEDS: Senokot S 8.6-50 MG TAB PO SCH ×2 (10:47→20:32)
[2020-11-06] MEDS: CeleCOXIB 100 MG CAP PO SCH ×2 (10:47→20:33)
[2020-11-06] MEDS: Potassium Chloride 10 MEQ TAB PO SCH (10:48)
[2020-11-06] MEDS: Multivitamin W/ Minerals 1 TAB PO SCH (10:48)
--- NOTE | 2020-11-06 13:27 | PDOC.HOSPP ---
- Subjective Encounter Date: 11/06/20 Encounter Time: 10:45 Subjective: Patient doing well he is sitting in the chair. He has no complaints. He has a right knee in straps. - Objective Vital Signs & Weight: Vital Signs (12 hours) Temp Pulse Resp BP BP Pulse Ox 11/06/20 12:05 97.8 F 60 16 126/78 96 11/06/20 10:15 95 11/06/20 08:38 98.4 F 66 16 134/71 95 11/06/20 03:52 98.0 F 59 L 18 135/85 98 Weight Admit Weight 250 lb Weight 250 lb I&O: 11/05/20 11/06/20 11/07/20 06:59 06:59 06:59 Intake Total 2400 2430 Output Total 1250 2170 Balance 1150 260 Result Diagrams: 11/06/20 03:48 11/06/20 03:48 Hospitalist ROS - Medication Medications: Active Medications Generic Name Dose Route Start Last Admin Trade Name Freq PRN Reason Stop Dose Admin Hydrocodone Bitart/Acetaminophen 1 tab 10/30/20 11:40 11/03/20 21:08 Hydrocodone/Acetaminophen 10/325 Mg Tablet PO 1 tab Q4H PRN Administration Moderate Pain (4-6) Hydrocodone Bitart/Acetaminophen 2 tab 10/30/20 11:40 10/31/20 22:57 Hydrocodone/Acetaminophen 10/325 Mg Tablet PO 2 tab Q4H PRN Administration Severe Pain (7-10) Apixaban 5 mg 10/31/20 21:00 11/06/20 10:46 Apixaban 5 Mg Tab PO 5 mg BID [facility] Administration Aspirin 81 mg 10/30/20 21:00 11/06/20 10:46 Aspirin 81 Mg Enteric Coated Tablet PO 81 mg BID [facility] Administration Celecoxib 200 mg 10/31/20 21:00 11/06/20 10:47 Celecoxib 100 Mg Cap PO 200 mg BID [facility] Administration Ferrous Gluconate 324 mg 10/30/20 21:00 11/06/20 10:46 Ferrous Gluconate 324 Mg Tab PO 324 mg BID [facility] Administration Lisinopril/HCTZ 1 tab 10/31/20 09:00 11/06/20 10:47 Lisinopril/Hydrochlorothiazide 20/25 Mg Tablet PO 1 tab QAM [facility] Administration Ampicillin Sodium 3 gm/ Sodium 100 mls @ 200 mls/hr 02/14/21 16:00 11/06/20 10:51 Chloride IVPB 100 mls 0400,1000,1600,2200 [facility] Administration Iron/Minerals/Multivitamins 1 tab 10/31/20 09:00 11/06/20 10:48 Multivitamin W/ Minerals 1 Tab PO 1 tab DAILY [facility] Administration Lisinopril 20 mg 10/30/20 21:00 11/05/20 20:04 Lisinopril 20 Mg Tab PO 20 mg QPM [facility] Administration Metoprolol Succinate 50 mg 10/30/20 21:00 11/05/20 20:04 Metoprolol Succinate Xl 50 Mg Tab PO 50 mg QPM [facility] Administration Potassium Chloride 10 meq 10/31/20 09:00 11/06/20 10:48 Potassium Chloride 10 Meq Tab PO 10 meq DAILY [facility] Administration Rosuvastatin Calcium 5 mg 10/30/20 21:00 11/05/20 20:04 Rosuvastatin 5 Mg Tab PO 5 mg QPM [facility] Administration Senna/Docusate Sodium 2 tab 10/30/20 21:00 11/06/20 10:47 Senokot S 8.6-50 Mg Tab PO 2 tab BID [facility] Administration Hospitalist Exam Vitals: Vital Signs (12 hours) Temp Pulse Resp BP BP Pulse Ox 11/06/20 12:05 97.8 F 60 16 126/78 96 11/06/20 10:15 95 11/06/20 08:38 98.4 F 66 16 134/71 95 11/06/20 03:52 98.0 F 59 L 18 135/85 98 Weight Admit Weight 250 lb Weight 250 lb General Appearance: NAD, awake alert Eye: PERRL ENT: normocephalic atraumatic, no oropharyngeal lesions Neck: supple, no thyromegaly Heart: RRR, diminshed peripheral pulses Respiratory: CTAB, normal chest expansion, no tachypnea Gastrointestinal: soft, no palpable masses Extremities - other findings: Right knee strap--boots Neurological: cranial nerve grossly intact, no new deficit Psychiatric: normal affect, normal behavior, A&O x 3 Hosp A/P - Plan Status post incision and drainage (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 S/P I and D. Wound cultures growing Enterococcus Species. -He is getting ampicillin 4 times a day.--This will be continued until end november and then amoxicillin 500 mg 3 times daily for 4 months and then twice a day indefinitely. -patient has a PICC line. 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 (2) Atrial fibrillation Rate controlled with the Toprol and he is taking Eliquis (3) Hyperlipidemia Code(s): E78.5 - HYPERLIPIDEMIA, UNSPECIFIED Status: Chronic (4) Hypertension -Patient on lisinopril and hydrochlorothiazide 2)DM. Diet controlled not on any home regimen. His blood glucose here reasonably controlled. 3.Morbid obesity. #4 Hypertension. PT evaluation and ongoing treatment. Covid negative -antibiotic requires 4 times a day infusion until end november so he would benefit with the facility which would provide or home health infusion if he has a home support available.
[2020-11-06] MEDS: Rosuvastatin 5 MG TAB PO SCH (20:32)
[2020-11-06] MEDS: HYDROcodone/Acetaminophen 10/325 mg Tablet PO PRN (20:36)
[2020-11-07] MEDS: Apixaban 5 MG TAB PO SCH ×2 (08:51→20:51)
[2020-11-07] MEDS: Multivitamin W/ Minerals 1 TAB PO SCH (08:51)
[2020-11-07] MEDS: Ferrous Gluconate 324 MG TAB PO SCH ×2 (08:51→20:51)
[2020-11-07] MEDS: CeleCOXIB 100 MG CAP PO SCH ×2 (08:52→20:51)
[2020-11-07] MEDS: Aspirin 81 mg Enteric Coated Tablet PO SCH ×2 (08:53→20:51)
[2020-11-07] MEDS: Potassium Chloride 10 MEQ TAB PO SCH (08:53)
[2020-11-07] MEDS: Lisinopril/Hydrochlorothiazide 20/25 mg Tablet PO SCH (08:53)
[2020-11-07] MEDS: Senokot S 8.6-50 MG TAB PO SCH ×2 (08:54→20:51)
--- NOTE | 2020-11-07 11:21 | PRG ---
DATE OF SERVICE: 11/07/2020 SUBJECTIVE: Ziyad is a 75-year-old male, still waiting for approval for home antibiotic and IV treatment. He is doing relatively well. He is able to ambulate in a toe-touch weightbearing over 250 feet and tolerates it well. OBJECTIVE: He is alert and oriented to person, place, time, and situation. Responsive and appropriate with examiner. In fact, he is up walking with therapy right now. Incision is clean. No strike through. No erythema. Neurovascularly intact in the right lower extremity. 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 PLAN: Pending antibiotic outpatient treatment. Once this is set up, he will be stable for discharge. Job ID: [id number]
--- NOTE | 2020-11-07 13:35 | PDOC.HOSPP ---
- Subjective Encounter Date: 11/07/20 Encounter Time: 11:45 Subjective: Physical therapy is nearby. Patient has no new concerns or complaints this morning. He is on knee immobilizer. Orthopedic note reviewed. - Objective Vital Signs & Weight: Vital Signs (12 hours) Temp Pulse Resp BP BP BP Pulse Ox 11/07/20 11:43 98.4 F 72 16 126/75 95 11/07/20 08:53 60 125/60 11/07/20 08:06 98.7 F 60 16 125/60 95 11/07/20 08:00 95 11/07/20 03:46 98.5 F 69 18 137/77 98 Weight Admit Weight 250 lb Weight 250 lb I&O: 11/06/20 11/07/20 11/08/20 06:59 06:59 06:59 Intake Total 2430 2470 Output Total 2170 1950 Balance 260 520 Result Diagrams: 11/06/20 03:48 11/06/20 03:48 Hospitalist ROS - Medication Medications: Active Medications Generic Name Dose Route Start Last Admin Trade Name Freq PRN Reason Stop Dose Admin Hydrocodone Bitart/Acetaminophen 1 tab 10/30/20 11:40 11/03/20 21:08 Hydrocodone/Acetaminophen 10/325 Mg Tablet PO 1 tab Q4H PRN Administration Moderate Pain (4-6) Hydrocodone Bitart/Acetaminophen 2 tab 10/30/20 11:40 11/06/20 20:36 Hydrocodone/Acetaminophen 10/325 Mg Tablet PO 2 tab Q4H PRN Administration Severe Pain (7-10) Apixaban 5 mg 10/31/20 21:00 11/07/20 08:51 Apixaban 5 Mg Tab PO 5 mg BID [facility] Administration Aspirin 81 mg 10/30/20 21:00 11/07/20 08:53 Aspirin 81 Mg Enteric Coated Tablet PO 81 mg BID [facility] Administration Celecoxib 200 mg 10/31/20 21:00 11/07/20 08:52 Celecoxib 100 Mg Cap PO 200 mg BID [facility] Administration Ferrous Gluconate 324 mg 10/30/20 21:00 11/07/20 08:51 Ferrous Gluconate 324 Mg Tab PO 324 mg BID [facility] Administration Lisinopril/HCTZ 1 tab 10/31/20 09:00 11/07/20 08:53 Lisinopril/Hydrochlorothiazide 20/25 Mg Tablet PO 1 tab QAM [facility] Administration Ampicillin Sodium 3 gm/ Sodium 100 mls @ 200 mls/hr 10/31/20 16:00 11/07/20 11:10 Chloride IVPB 100 mls 0400,1000,1600,2200 [facility] Administration Iron/Minerals/Multivitamins 1 tab 10/31/20 09:00 11/07/20 08:51 Multivitamin W/ Minerals 1 Tab PO 1 tab DAILY [facility] Administration Metoprolol Succinate 50 mg 10/30/20 21:00 11/06/20 20:33 Metoprolol Succinate Xl 50 Mg Tab PO 50 mg QPM [facility] Administration Potassium Chloride 10 meq 10/31/20 09:00 11/07/20 08:53 Potassium Chloride 10 Meq Tab PO 10 meq DAILY [facility] Administration Rosuvastatin Calcium 5 mg 10/30/20 21:00 11/06/20 20:32 Rosuvastatin 5 Mg Tab PO 5 mg QPM [facility] Administration Senna/Docusate Sodium 2 tab 10/30/20 21:00 11/07/20 08:54 Senokot S 8.6-50 Mg Tab PO Not Given BID [facility] Hospitalist Exam Vitals: Vital Signs (12 hours) Temp Pulse Resp BP BP BP Pulse Ox 11/07/20 11:43 98.4 F 72 16 126/75 95 11/07/20 08:53 60 125/60 11/07/20 08:06 98.7 F 60 16 125/60 95 11/07/20 08:00 95 11/07/20 03:46 98.5 F 69 18 137/77 98 Weight Admit Weight 250 lb Weight 250 lb General Appearance: NAD, awake alert Eye: PERRL Neck: supple Heart: RRR, normal peripheral pulses Respiratory: CTAB, normal chest expansion Gastrointestinal: soft, normal bowel sounds Extremities - other findings: Right kidney on immobilizer Neurological: cranial nerve grossly intact, no new deficit Psychiatric: A&O x 3 Hosp A/P - Plan Status post incision and drainage (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 S/P I and D. Wound cultures growing Enterococcus Species. -He is getting ampicillin 4 times a day.--This will be continued until end of November and then amoxicillin 500 mg 3 times daily for 4 months and then twice a day indefinitely. -patient has a PICC line. 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 (2) Atrial fibrillation Rate controlled with the Toprol and he is taking Eliquis (3) Hyperlipidemia Code(s): E78.5 - HYPERLIPIDEMIA, UNSPECIFIED Status: Chronic (4) Hypertension -Patient on lisinopril and hydrochlorothiazide 2)DM. Diet controlled not on any home regimen. His blood glucose here reasonably controlled. 3.Morbid obesity. #4 Hypertension. PT evaluation and ongoing treatment. Covid negative -antibiotic requires 4 times a day infusion until end of November so he would benefit with the facility which would provide that or home health infusion if he has a home support available. We will check with the case management assistant. Consult placed.
[2020-11-07] MEDS: Rosuvastatin 5 MG TAB PO SCH (20:51)
[2020-11-08] MEDS: Ferrous Gluconate 324 MG TAB PO SCH ×2 (09:02→20:35)
[2020-11-08] MEDS: CeleCOXIB 100 MG CAP PO SCH ×2 (09:02→20:35)
[2020-11-08] MEDS: Aspirin 81 mg Enteric Coated Tablet PO SCH ×2 (09:02→20:35)
[2020-11-08] MEDS: Lisinopril/Hydrochlorothiazide 20/25 mg Tablet PO SCH (09:03)
[2020-11-08] MEDS: Apixaban 5 MG TAB PO SCH ×2 (09:03→20:34)
[2020-11-08] MEDS: Potassium Chloride 10 MEQ TAB PO SCH (09:03)
[2020-11-08] MEDS: Multivitamin W/ Minerals 1 TAB PO SCH (09:03)
[2020-11-08] MEDS: Senokot S 8.6-50 MG TAB PO SCH ×2 (09:14→20:34)
--- NOTE | 2020-11-08 13:25 | PDOC.HOSPP ---
- Subjective Encounter Date: 11/08/20 Encounter Time: 10:28 Subjective: Patient seen this morning. He appears well. Waiting for the rehab placement. He has no acute complaints - Objective Vital Signs & Weight: Vital Signs (12 hours) Temp Pulse Resp BP BP BP Pulse Ox 11/08/20 09:03 62 135/81 11/08/20 08:06 97.9 F 62 16 135/81 98 11/08/20 03:16 98.1 F 60 16 124/78 98 Weight Admit Weight 250 lb Weight 250 lb I&O: 11/07/20 11/08/20 11/09/20 06:59 06:59 06:59 Intake Total 2470 2040 Output Total 1950 1100 Balance 520 940 Result Diagrams: 11/06/20 03:48 11/06/20 03:48 Hospitalist ROS - Medication Medications: Active Medications Generic Name Dose Route Start Last Admin Trade Name Freq PRN Reason Stop Dose Admin Hydrocodone Bitart/Acetaminophen 1 tab 10/30/20 11:40 11/03/20 21:08 Hydrocodone/Acetaminophen 10/325 Mg Tablet PO 1 tab Q4H PRN Administration Moderate Pain (4-6) Hydrocodone Bitart/Acetaminophen 2 tab 10/30/20 11:40 11/06/20 20:36 Hydrocodone/Acetaminophen 10/325 Mg Tablet PO 2 tab Q4H PRN Administration Severe Pain (7-10) Apixaban 5 mg 10/31/20 21:00 11/08/20 09:03 Apixaban 5 Mg Tab PO 5 mg BID [facility] Administration Aspirin 81 mg 10/30/20 21:00 11/08/20 09:02 Aspirin 81 Mg Enteric Coated Tablet PO 81 mg BID [facility] Administration Celecoxib 200 mg 10/31/20 21:00 11/08/20 09:02 Celecoxib 100 Mg Cap PO 200 mg BID [facility] Administration Ferrous Gluconate 324 mg 10/30/20 21:00 11/08/20 09:02 Ferrous Gluconate 324 Mg Tab PO 324 mg BID [facility] Administration Lisinopril/HCTZ 1 tab 10/31/20 09:00 11/08/20 09:03 Lisinopril/Hydrochlorothiazide 20/25 Mg Tablet PO 1 tab QAM [facility] Administration Ampicillin Sodium 3 gm/ Sodium 100 mls @ 200 mls/hr 10/31/20 16:00 11/08/20 12:36 Chloride IVPB 100 mls 0400,1000,1600,2200 [facility] Administration Iron/Minerals/Multivitamins 1 tab 10/31/20 09:00 11/08/20 09:03 Multivitamin W/ Minerals 1 Tab PO 1 tab DAILY [facility] Administration Metoprolol Succinate 50 mg 10/30/20 21:00 11/07/20 20:54 Metoprolol Succinate Xl 50 Mg Tab PO 50 mg QPM [facility] Administration Potassium Chloride 10 meq 10/31/20 09:00 11/08/20 09:03 Potassium Chloride 10 Meq Tab PO 10 meq DAILY [facility] Administration Rosuvastatin Calcium 5 mg 10/30/20 21:00 11/07/20 20:51 Rosuvastatin 5 Mg Tab PO 5 mg QPM [facility] Administration Senna/Docusate Sodium 2 tab 10/30/20 21:00 11/08/20 09:14 Senokot S 8.6-50 Mg Tab PO 2 tab BID [facility] Administration Hospitalist Exam Vitals: Vital Signs (12 hours) Temp Pulse Resp BP BP BP Pulse Ox 11/08/20 09:03 62 135/81 11/08/20 08:06 97.9 F 62 16 135/81 98 11/08/20 03:16 98.1 F 60 16 124/78 98 Weight Admit Weight 250 lb Weight 250 lb General Appearance: NAD, awake alert Eye: PERRL ENT: normocephalic atraumatic Neck: supple Heart: RRR, II/IV Respiratory: CTAB, normal chest expansion Gastrointestinal: soft, normal bowel sounds Extremities - other findings: Knee immobilizer Neurological: no focal deficits Musculoskeletal: generalized weakness Psychiatric: A&O x 3 Hosp A/P - Plan Status post incision and drainage (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 S/P I and D. Wound cultures growing Enterococcus Species. -He is getting ampicillin 4 times a day.--This will be continued until end of November and then amoxicillin 500 mg 3 times daily for 4 months and then twice a day indefinitely. -patient has a PICC line. 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 (2) Atrial fibrillation Rate controlled with the Toprol and he is taking Eliquis (3) Hyperlipidemia Code(s): E78.5 - HYPERLIPIDEMIA, UNSPECIFIED Status: Chronic (4) Hypertension -Patient on lisinopril and hydrochlorothiazide 2)DM. Diet controlled not on any home regimen. His blood glucose here reasonably controlled. 3.Morbid obesity. #4 Hypertension. PT evaluation and ongoing treatment. Covid negative -antibiotic requires 4 times a day infusion until end of November so he would benefit with the facility which would provide that or home health infusion if he has a home support available. We will check with the wrapper caser. Consult placed.
[2020-11-08] MEDS: Rosuvastatin 5 MG TAB PO SCH (20:34)
[2020-11-09] MEDS: CeleCOXIB 100 MG CAP PO SCH (10:08)
[2020-11-09] MEDS: Senokot S 8.6-50 MG TAB PO SCH (10:09)
[2020-11-09] MEDS: Aspirin 81 mg Enteric Coated Tablet PO SCH (10:10)
[2020-11-09] MEDS: Multivitamin W/ Minerals 1 TAB PO SCH (10:10)
[2020-11-09] MEDS: Ferrous Gluconate 324 MG TAB PO SCH (10:10)
[2020-11-09] MEDS: Apixaban 5 MG TAB PO SCH (10:10)
[2020-11-09] MEDS: Lisinopril/Hydrochlorothiazide 20/25 mg Tablet PO SCH (10:10)
[2020-11-09] MEDS: Potassium Chloride 10 MEQ TAB PO SCH (10:10)
--- NOTE | 2020-11-09 14:58 | PDOC.HOSPP ---
- Subjective Encounter Date: 11/09/20 Encounter Time: 10:45 Subjective: Patient seen this morning at bedside. [facility] especially for [facility] IV antibiotic infusion. - Objective Vital Signs & Weight: Vital Signs (12 hours) Temp Pulse Resp BP BP BP Pulse Ox 11/09/20 11:45 98.1 F 60 16 111/68 96 11/09/20 10:10 61 126/77 11/09/20 08:00 98.4 F 61 14 126/77 96 11/09/20 04:05 98.2 F 65 16 133/79 98 Weight Admit Weight 250 lb Weight 250 lb I&O: 11/08/20 11/09/20 11/10/20 06:59 06:59 06:59 Intake Total 2040 2120 Output Total 1100 1950 Balance 940 170 Result Diagrams: 11/06/20 03:48 11/06/20 03:48 Hospitalist ROS - Medication Medications: Active Medications Generic Name Dose Route Start Last Admin Trade Name Freq PRN Reason Stop Dose Admin Apixaban 5 mg 10/31/20 21:00 11/09/20 10:10 Apixaban 5 Mg Tab PO 5 mg BID [facility] Administration Aspirin 81 mg 10/30/20 21:00 11/09/20 10:10 Aspirin 81 Mg Enteric Coated Tablet PO 81 mg BID [facility] Administration Celecoxib 200 mg 10/31/20 21:00 11/09/20 10:08 Celecoxib 100 Mg Cap PO 200 mg BID [facility] Administration Ferrous Gluconate 324 mg 10/30/20 21:00 11/09/20 10:10 Ferrous Gluconate 324 Mg Tab PO 324 mg BID [facility] Administration Lisinopril/HCTZ 1 tab 10/31/20 09:00 11/09/20 10:10 Lisinopril/Hydrochlorothiazide 20/25 Mg Tablet PO 1 tab QAM [facility] Administration Ampicillin Sodium 3 gm/ Sodium 100 mls @ 200 mls/hr 10/31/20 16:00 11/09/20 11:00 Chloride IVPB 100 mls 0400,1000,1600,2200 [facility] Administration Iron/Minerals/Multivitamins 1 tab 10/31/20 09:00 11/09/20 10:10 Multivitamin W/ Minerals 1 Tab PO 1 tab DAILY [facility] Administration Metoprolol Succinate 50 mg 10/30/20 21:00 11/08/20 20:35 Metoprolol Succinate Xl 50 Mg Tab PO 50 mg QPM [facility] Administration Potassium Chloride 10 meq 10/31/20 09:00 11/09/20 10:10 Potassium Chloride 10 Meq Tab PO 10 meq DAILY [facility] Administration Rosuvastatin Calcium 5 mg 10/30/20 21:00 11/08/20 20:34 Rosuvastatin 5 Mg Tab PO 5 mg QPM [facility] Administration Senna/Docusate Sodium 2 tab 10/30/20 21:00 11/09/20 10:09 Senokot S 8.6-50 Mg Tab PO 2 tab BID [facility] Administration Hospitalist Exam Vitals: Vital Signs (12 hours) Temp Pulse Resp BP BP BP Pulse Ox 11/09/20 11:45 98.1 F 60 16 111/68 96 11/09/20 10:10 61 126/77 11/09/20 08:00 98.4 F 61 14 126/77 96 11/09/20 04:05 98.2 F 65 16 133/79 98 Weight Admit Weight 250 lb Weight 250 lb General Appearance: NAD, awake alert Eye: PERRL ENT: normocephalic atraumatic Neck: supple Heart: RRR, normal peripheral pulses Respiratory: CTAB, normal chest expansion Gastrointestinal: soft, normal bowel sounds Extremities - other findings: Knee immobilizer Neurological: cranial nerve grossly intact, no focal deficits Musculoskeletal: generalized weakness Psychiatric: A&O x 3 Hosp A/P - Plan Status post incision and drainage (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 S/P I and D. Wound cultures growing Enterococcus Species. -He is getting ampicillin 4 times a day.--This will be continued until end of November and then amoxicillin 500 mg 3 times daily for 4 months and then twice a day indefinitely. -patient has a PICC line. 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 (2) Atrial fibrillation Rate controlled with the Toprol and he is taking Eliquis (3) Hyperlipidemia Code(s): E78.5 - HYPERLIPIDEMIA, UNSPECIFIED Status: Chronic (4) Hypertension -Patient on lisinopril and hydrochlorothiazide 2)DM. Diet controlled not on any home regimen. His blood glucose here reasonably controlled. 3.Morbid obesity. #4 Hypertension. PT evaluation and ongoing treatment. Covid negative -antibiotic requires 4 times a day infusion until end of November so he would benefit with the facility which would provide that or home health infusion if he has a home support available. We will check with the director of casework department. Consult placed. It has been planned [facility] approach [facility] in addition to trying for home IV antibiotic infusion.
[2020-11-09 17:37] VITALS: BP 106/47; TEMP 98.3
--- NOTE | 2020-11-10 15:26 | PDOC.DS.DS ---
Provider Date of Admission: 10/30/20 08:24 Admitting Provider: Dayron Valente MD Primary Care Physician: NO PCP PROVIDER Course Hospital Course: Status post revision of total replacement of right knee Code(s): Z98.890 - OTHER SPECIFIED POSTPROCEDURAL STATES Status: Acute Infected right knee. S/P I and D. Wound cultures growing Enterococcus Species. -He is getting ampicillin 4 times a day.--This will be continued until end of November and then amoxicillin 500 mg 3 times daily for 4 months and then twice a day indefinitely. -patient has a PICC line. 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 (2) Atrial fibrillation Rate controlled with the Toprol and he is taking Eliquis (3) Hyperlipidemia Code(s): E78.5 - HYPERLIPIDEMIA, UNSPECIFIED Status: Chronic (4) Hypertension -Patient on lisinopril and hydrochlorothiazide 2)DM. Diet controlled not on any home regimen. His blood glucose here reasonably controlled. 3.Morbid obesity. #4 Hypertension. Covid negative Patient is expected to follow-up with infectious disease clinic for weekly labs as deemed necessary. Follow-up with PCP in 1 week. Charge time over 30 minutes. Lab Results: 11/06/20 03:48 11/06/20 03:48 Microbiology - Entire Visit 10/30/20 09:15 Knee - Tissue Direct Acid Fast Bacilli Smear - Final 10/30/20 09:15 Knee - Tissue Acid Fast Bacilli Smear - Final 10/30/20 09:15 Knee - Tissue Acid Fast Bacilli Culture - Preliminary Specimen has been received and culture in progress. No Growth to date. 10/30/20 09:15 Knee - Tissue Bacterial Culture - Final 10/30/20 09:15 Knee - Tissue Anaerobic Culture - Final NO ANAEROBES ISOLATED IN 5 DAYS 10/30/20 10:36 Knee - Swab Bacterial Culture - Final Presumptive Enterococcus sp. 10/30/20 10:36 Knee - Swab Anaerobic Culture - Final No growth. Vitals: Weight Admit Weight 250 lb Weight 250 lb Physical Exam: The patient was seen and examined on the day of discharge. no cute c/o from him Plan Home Medications: Medication Instructions Recorded Confirmed Type Acetaminophen [Acetaminophen Extra 1,500 mg PO BID 06/26/13 10/28/20 History Strength] Lisinopril/Hydrochlorothiazide 1 tab PO QAM 06/26/13 10/28/20 History [Prinizide] Metoprolol Succinate [Toprol XL] 50 mg PO QPM 06/26/13 10/28/20 History Potassium Chloride [Klor-Con 10] 10 meq PO DAILY 06/26/13 10/28/20 History Apixaban [Eliquis] 5 mg PO BID 10/28/20 10/28/20 History Diclofenac Sodium [Diclofenac 2 gm TOP QID PRN 10/28/20 10/28/20 History Sodium 1% Gel] Ergocalciferol (Vitamin D2) 50,000 unit PO Q7DAYS 10/28/20 10/28/20 History [Vitamin D2] Fish Oil/DHA/EPA [Fish Oil 1,200 1 cap PO ASDIR 10/28/20 10/28/20 History mg Fish Oil] Folic Acid 0.8 mg PO ASDIR 10/28/20 10/28/20 History HYDROcodone Bit/APAP 10/325 [[place]] 1 tab PO Q6HR PRN 10/28/20 10/30/20 History Lisinopril 20 mg PO QPM 10/28/20 10/28/20 History Red Yeast Rice 1,200 mg PO QAM 10/28/20 10/28/20 History Rosuvastatin [Crestor] 5 mg PO QPM 10/28/20 10/28/20 History AMPicillin 3 gm IVPB Q6HR 11/09/20 11/09/20 History Allergies: No Known Allergies Allergy (Verified 10/28/20 14:59) Discharge Instructions:: Continue Ampicillin 3g IV every 6 hours until December 11. After completion of IV Ampicillin, you will switch to Amoxicillin 500mg tablet three times a day for 4 months, then drop to twice a day indefinitely. You will need weekly labs drawn: CBC, CRP, CMP. (Results sent to Dr. Correa) Make sure to cover your PICC line when showering, as well as your incision to your knee. Your PICC line dressing will need to be changed once a week by home health. Continue to use your knee immobilizer when out of bed. Activity:: Activity as Tolerated Referrals: [facility] [Outside] (They will contact you for a start date of service.) [facility] [Outside] (They will deliver the medications to your home tonight between 7pm-8pm.) Dayron Valente MD [Active] - (CONTACT DR. VALENTE'S OFFICE TOMORROW 11/10 TO DISCUSS APPOINTMENT TIME AND LOCATION. ) Luis Correa MD [Active] - (CONTACT DR. CORREA' OFFICE TOMORROW 11/10 TO SCHEDULE A FOLLOW UP APPOINTMENT. ) Disposition: HOME HEALTH Quality CORE MEASURES:: N/A
== END 2020-11-09 18:15 | disposition home health service (06) | DRG 467 ==
LOC: SURG A 10-30 08:24
PROVIDERS: ADMIT Orthopaedic Surgery; ATTEND Internal Medicine
PROC: 0SPC0JZ Removal of Synthetic Substitute from Right Knee Joint, Open Approach (ICD-10-PCS; principal; 2020-10-30)
PROC: 0SRC0J9 Replacement of Right Knee Joint with Synthetic Substitute, Cemented, Open Approach (ICD-10-PCS; 2020-10-30)
PROC: 02HV33Z Insertion of Infusion Device into Superior Vena Cava, Percutaneous Approach (ICD-10-PCS; 2020-11-03)
PROC: B548ZZA Ultrasonography of Superior Vena Cava, Guidance (ICD-10-PCS; 2020-11-03)
DX: T84.53XA Infection and inflammatory reaction due to internal right knee prosthesis, initial encounter (principal); M00.861 Arthritis due to other bacteria, right knee; Z20.822 Contact with and (suspected) exposure to COVID-19; Z96.653 Presence of artificial knee joint, bilateral; I10 Essential (primary) hypertension; E78.00 Pure hypercholesterolemia, unspecified; E78.5 Hyperlipidemia, unspecified; I48.0 Paroxysmal atrial fibrillation; B95.2 Enterococcus as the cause of diseases classified elsewhere; Y83.8 Other surgical procedures as the cause of abnormal reaction of the patient, or of later complication, without mention of misadventure at the time of the procedure; E66.01 Morbid (severe) obesity due to excess calories; Z95.0 Presence of cardiac pacemaker; Z68.38 Body mass index [BMI] 38.0-38.9, adult; Z79.899 Other long term (current) drug therapy
CPT/HCPCS: 36415; 36569; 71045; 80048; 81001; 85025; 85027; 85610; 86769; 86850; 86900; 86901; 87070; 87116; 87205; 87206; 87635; C1713; C1751; C1776; J0290; J0690; J1100; J1170; J1642; J1644; J1885; J2250; J2370; J2405; J2704; J3010; J3260; J3370; J3490; S0020; U0003; U0005

== ENCOUNTER 2020-10-28 09:08 | Outpatient (CLI) | payer BC ==
[2020-10-29 06:33] LABS: SARS-CoV-2 PCR by NAA DETECTED (NotDetected)
== END 2020-10-28 09:09 | disposition home or self-care (01) ==
LOC: LABBT 09:08
PROVIDERS: ATTEND Orthopaedic Surgery
DX: U07.1 COVID-19 (principal); Z01.818 Encounter for other preprocedural examination; T84.53XA Infection and inflammatory reaction due to internal right knee prosthesis, initial encounter
CPT/HCPCS: 87081; 87635; 93005; 93010; U0003; U0005